=== PATIENT | female | born 1935 | race Caucasian/White ===

== ENCOUNTER 2017-05-01 09:40 | Outpatient (CLI) | payer MEDICARE, SELFPAY | END 2017-05-01 10:35 | disposition home or self-care (01) | PROVIDERS: Visit Provider Nurse Practitioner Family | DX: M81.0 Age-related osteoporosis without current pathological fracture (principal) | CPT/HCPCS: 96365; J3489 ==

== ENCOUNTER → 2017-05-15 10:13 | Outpatient (CLI) | payer MEDICARE, SELFPAY ==
[2017-05-15 10:41] LABS: Basophils % 0.4 % (0.1-2.0); Eosinophils # 0.3 K/mm3 (0.0-0.4); Eosinophils % 3.6 % (0.1-12.0); Hematocrit 37.4 % (37.0-47.0); Hemoglobin 12.2 g/dL (12.2-16.2); Lymphocytes % 13.3 K/mm3 (10-50); Mean Corpuscular HGB Conc 32.7 g/dL (31.8-35.4); Mean Corpuscular Hemoglobin 29.8 pg (27.0-31.2); Mean Corpuscular Volume 90.9 fl (81-99); Mean Platelet Volume 8.1 fl (7.4-10.4); Monocytes # 0.5 K/mm3 (0.1-1.0); Monocytes % 6.5 % (1.7-9.3); Neutrophils # 5.7 K/mm3 (1.8-7.8); Neutrophils % 76.2 % (37.0-80.0); Platelet Count 228 K/mm3 (142-424); Red Blood Count 4.11 M/mm3 (4.20-5.40); Red Cell Distribution Width 14.1 % (11.5-17.5); White Blood Count 7.5 K/mm3 (4.8-10.8)
[2017-05-15 10:47] LABS: INR 0.99 (0.9-1.1); Prothrombin Time 10.7 seconds (9.4-11.8)
[2017-05-15 12:50] LABS: Alanine Aminotransferase 21 U/L (12-78); Albumin Level 3.8 gm/dL (3.4-5.0); Albumin/Globulin Ratio 1.3 (1.1-1.8); Alkaline Phosphatase 114 U/L (46-116); Anion Gap 10.1 mEq/L (5-15); Aspartate Amino Transferase 17 U/L (15-37); Bilirubin,Total 0.3 mg/dL (0.2-1.0); Blood Urea Nitrogen 23 mg/dL (7-18); Carbon Dioxide 26 mmol/L (21.0-32.0); Chloride 106 mmol/L (98-107); Creatinine,Serum 0.81 mg/dL (0.55-1.02); Estimated Glomerular Filt Rate > 60 ml/min (>60); GFR (African American) > 60 ML/MIN (>60); Globulin 2.9 gm/dl (1.3-3.2); Glucose 91 mg/dL (74-106); Potassium 5.1 mmoL/L (3.5-5.1); Sodium 137 mmol/L (136-145); Total Protein,Serum 6.7 gm/dL (6.4-8.2)
== END ==
PROVIDERS: PCP Family Medicine; Visit Provider Nurse Practitioner Acute Care
DX: K74.60 Unspecified cirrhosis of liver (principal); R91.8 Other nonspecific abnormal finding of lung field
CPT/HCPCS: 36415; 80053; 85025; 85610

== ENCOUNTER → 2017-05-16 12:52 | Outpatient (CLI) | payer MEDICARE, SELFPAY ==
--- NOTE | 2017-05-16 | CT_ITS ---
CT chest wo/w con HISTORY: Follow-up pulmonary nodules ORDERING PHYSICIAN: Savita Acevedo PATIENT AGE: 81 years TECHNIQUE: Axial images obtained. Sagittal and coronal reformatted images are also generated and reviewed. CONTRAST: 75ml Isovue 370 I.V. COMPARISON: 10/28/2016 and 06/12/2016 FINDINGS: Artifact is present from left subclavian placed pacer. No mediastinal or hilar mass or adenopathy. No evidence of aortic aneurysm or central pulmonary and was. Coronary artery stent present. Normal heart size without evidence of pericardial effusion. There are multiple subcentimeter noncalcified pulmonary nodules as previously described. These do not appear significantly changed. No new nodules identified. Dependent changes are present in the lung bases. No effusions or infiltrates. Upper abdominal images show small hiatal hernia. There is mild thoracic curvature convex right with no acute bony anomalies. IMPRESSION: Overall stable CT appearance of the chest. No significant change with no acute finding. No change multiple noncalcified pulmonary nodules over a nearly one-year period. Suggest continued 12 month follow-up
[2017-05-16 13:14] LABS: Ammonia 18 umol/L (19-54)
--- NOTE | 2017-05-16 13:53 | HMH.ITSHM ---
alpha lipoic acid trintellix dofilide cholecalciferol co enzyme q-10 diltiazem febuxostat tolterodine fexofenadine furosemide gabapentin methytlcellulose nystatin omega 3 vit c [facility] po polyethylene glycol omeprazone potachloride metoprolol eliquis
== END ==
PROVIDERS: Family Provider Family Medicine; PCP Family Medicine; Visit Provider Nurse Practitioner Acute Care
DX: R91.8 Other nonspecific abnormal finding of lung field (principal)
CPT/HCPCS: 71270; 82140; Q9967

== ENCOUNTER → 2017-06-02 09:22 | Outpatient (POV) | payer MEDICARE, SELFPAY | PROVIDERS: Visit Provider Nurse Practitioner Acute Care | DX: Z00.00 Encounter for general adult medical examination without abnormal findings (principal) ==

== ENCOUNTER → 2017-06-05 09:42 | Outpatient (CLI) | payer MEDICARE, SELFPAY ==
--- NOTE | 2017-06-05 09:45 | US_ITS ---
US abdomen limited HISTORY: Lateral view hepatitis ITS.REASON: CIRRHOSIS ORDERING PHYSICIAN: Savita Acevedo PATIENT AGE: 81 years COMPARISON: Ultrasound of 10/16/[address] scan of 09/02/2016 FINDINGS: Liver: No focal liver lesion. There is homogeneous echogenicity. No biliary dilatation. Pancreas: Unremarkable. Right kidney: No hydronephrosis. Small cyst along the superior pole and 14 mm. Gallbladder: No stones or gallbladder wall thickening. Small polyp noted along the anterior wall at 3 mm. No gallbladder wall thickening pericholecystic fluid or biliary dilatation. IMPRESSION: 1. Possible small gallbladder wall polyp. 2. Small right renal cyst. 3. Otherwise negative right upper quadrant ultrasound
== END ==
PROVIDERS: Family Provider Family Medicine; Visit Provider Nurse Practitioner Acute Care
DX: K74.60 Unspecified cirrhosis of liver (principal)
CPT/HCPCS: 76705

== ENCOUNTER → 2017-06-06 08:47 | Outpatient (POV) | payer MEDICARE, SELFPAY | PROVIDERS: Family Provider Family Medicine; Visit Provider Thoracic Surgery (Cardiothoracic Vascular Surgery) | DX: Z00.00 Encounter for general adult medical examination without abnormal findings (principal) ==

== ENCOUNTER 2017-07-21 06:48 | Day surgery (SDC) | payer MEDICARE, SELFPAY ==
[2017-07-18 13:03] VITALS: BMI 30.8
[2017-07-21] VITALS (7 sets, daily range): BP systolic 89–119; BP diastolic 53–77; PULSE 67–71; RESP 18–20; TEMP 36.4–36.6; O2SAT 20–98
--- NOTE | 2017-07-21 07:58 | HMH.ANESCL ---
[facility] Anesthesia Checklist - Patient Identification Patient Identification: Arm Band, Verbal (Name & ) - Structural Data Admitted From: Home Planned Operative Procedure/s: colonoscopy Consent for Planned Operative Procedure(s) Verified: Yes Verified Documents: Surgical Consent - NPO Status Verified Time NPO: 00:00 - Additional verifications Patient : No Anesthesia Reactions: No Hx Blood Transfusions: No Blood Transfusion Reaction: No Cephalosporin Allergy: No Previous Colonoscopy: No - Cardiovascular Assessment Heart Sounds: S1 & S2 Pulse Strength: Baseline Pulse Rhythm: Regular Peripheral Edema: No - Airway Assessment C-Spine Mobility Assessed: Yes TMJ Mobility Assessed: Yes Dentition: Good Dentition - Neurological Assessment Level of Consciousness: Awake, Alert, Appropriate Hx Seizures: No Numbness or tingling in extremities: No - Anesthesia Plan Anesthesia Risk discussed: Yes Anesthesia Plan: Verified ASA Class: III Anesthesia Type: MAC [facility] Anesthesia HX I have reviewed the patient's past medical history: Yes Medical History: Reports:: Atrial Fibrillation, Internal Pacemaker, Lung Disease (copd) Denies:: Diabetes Mellitus Type 1, Diabetes Mellitus Type 2, Seizures Other Surgeries: Yes: Appendectomy, Hysterectomy-Total, Pacemaker *Family Hx:: Unable to obtain
--- NOTE | 2017-07-21 08:10 | HMH.PROC ---
[facility] Procedure Note Procedure Note:: Colonoscopy Procedure Report: Colonoscopy with cold snare polypectomy Endoscopist: Ruben Mims II, MD Referring physician: Selvin Matos MD Date of Procedure: July 21, 2017 Equipment: Olympus 180 variable stiffness pediatric colonoscope Sedation: MAC sedation Indication: Mrs. Schulz is an 81-year-old female who is here for follow-up screening colonoscopy. She continues to have symptoms of lower abdominal discomfort, bloating, constipation and some hemorrhoidal bleeding over the last week. She has been on the fiber bowel regimen (MiraLAX plus Citrucel) routinely. The patient did have a CAT scan of the chest on May 16, 2017 showing no changes. The patient does have cirrhosis with small esophageal varices. The etiology of her cirrhosis is Florentino. The patient did have a colonoscopy in July 2012. At that time she had 2 polyps (tubular adenomas ?2) removed. Her sister had colon cancer at the age of 67. The patient did have a colonoscopy in January 2010 at which time 3 polyps (tubular adenomas ?2/hyperplastic polyp ?1) were removed. Procedure: Prior to the procedure, a history and physical exam was performed, and patient's medications and allergies were reviewed. The risks, benefits and alternatives of the sedation and procedure were discussed with the patient. All questions were answered and informed consent was obtained. The patient was brought to the procedure room. Patient identification and proposed procedure were verified by the physician and the nurse. The patient was placed in a left lateral decubitus position and the scope was passed under direct vision. Throughout the procedure, the patient's blood pressure, pulse, and oxygen saturations were monitored continuously. The colonoscopy was accomplished without difficulty. The patient tolerated the procedure well. Findings: On digital rectal examination there was normal rectal tone. There were no external hemorrhoids. The colonoscope was introduced through the anal canal to the rectum and advanced to the cecum. The ileocecal valve and appendiceal orifice were identified. The scope was advanced a short distance into the ileum which appeared grossly normal. The scope was then withdrawn into the colon. There were 4 colon polyps identified in the cecum ?1, transverse ?2 and descending ?1. These ranged in size from 5-7 mm and were all removed via cold snare polypectomy. The remaining cecum, ascending, transverse, descending, sigmoid and rectum were grossly normal. There were no other mucosal abnormalities identified. Upon retroflexion within the rectum there were grade 1 internal hemorrhoids. Impression: 1. Colonic polyps ?4 2. 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 We will discuss additional treatment options. I will follow-up the polyp histology. I am not convinced that she will need to continue surveillance colonoscopy.
--- NOTE | 2017-07-21 08:33 | P.PCN_ITS ---
[facility] Procedure Note Procedure Note:: Colonoscopy Procedure Report: Colonoscopy with cold snare polypectomy Endoscopist: Ruben Mims II, MD Referring physician: Selvin Matos MD Date of Procedure: July 21, 2017 Equipment: Olympus 180 variable stiffness pediatric colonoscope Sedation: MAC sedation Indication: Mrs. Schulz is an 81-year-old female who is here for follow-up screening colonoscopy. She continues to have symptoms of lower abdominal discomfort, bloating, constipation and some hemorrhoidal bleeding over the last week. She has been on the fiber bowel regimen (MiraLAX plus Citrucel) routinely. The patient did have a CAT scan of the chest on May 16, 2017 showing no changes. The patient does have cirrhosis with small esophageal varices. The etiology of her cirrhosis is Florentino. The patient did have a colonoscopy in July 2012. At that time she had 2 polyps (tubular adenomas ?2) removed. Her sister had colon cancer at the age of 67. The patient did have a colonoscopy in January 2010 at which time 3 polyps (tubular adenomas ?2/ hyperplastic polyp ?1) were removed. Procedure: Prior to the procedure, a history and physical exam was performed, and patient' s medications and allergies were reviewed. The risks, benefits and alternatives of the sedation and procedure were discussed with the patient. All questions were answered and informed consent was obtained. The patient was brought to the procedure room. Patient identification and proposed procedure were verified by the physician and the nurse. The patient was placed in a left lateral decubitus position and the scope was passed under direct vision. Throughout the procedure, the patient's blood pressure, pulse, and oxygen saturations were monitored continuously. The colonoscopy was accomplished without difficulty. The patient tolerated the procedure well. Findings: On digital rectal examination there was normal rectal tone. There were no external hemorrhoids. The colonoscope was introduced through the anal canal to the rectum and advanced to the cecum. The ileocecal valve and appendiceal orifice were identified. The scope was advanced a short distance into the ileum which appeared grossly normal. The scope was then withdrawn into the colon. There were 4 colon polyps identified in the cecum ?1, transverse ?2 and descending ?1. These ranged in size from 5-7 mm and were all removed via cold snare polypectomy. The remaining cecum, ascending, transverse, descending, sigmoid and rectum were grossly normal. There were no other mucosal abnormalities identified. Upon retroflexion within the rectum there were grade 1 internal hemorrhoids. Impression: 1. Colonic polyps ?4 2. 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 We will discuss additional treatment options. I will follow-up the polyp histology. I am not convinced that she will need to continue surveillance colonoscopy.
--- NOTE | 2017-07-21 13:06 | P.PN_ITS ---
[facility] Anesthesia Checklist - Structural Data Planned Operative Procedure/s: colonoscopy Consent for Planned Operative Procedure(s) Verified: Yes - Airway Assessment C-Spine Mobility Assessed: Yes TMJ Mobility Assessed: Yes Dentition: Good Dentition - Neurological Assessment Level of Consciousness: Awake, Alert [facility] Anesthesia HX I have reviewed the patient's past medical history: Yes Medical History: Reports:: Atrial Fibrillation, Internal Pacemaker, Lung Disease (copd) Denies:: Diabetes Mellitus Type 1, Diabetes Mellitus Type 2, Seizures Other Medical History: Denies: Blood Transfusion Reaction Other Surgeries: Yes: Appendectomy, Hysterectomy-Total, Pacemaker *Family Hx:: Unable to obtain
== END 2017-07-21 09:57 | disposition home or self-care (01) ==
PROVIDERS: Family Provider Family Medicine; Visit Provider Internal Medicine Gastroenterology
PROC: 0DJD8ZZ Inspection of Lower Intestinal Tract, Via Natural or Artificial Opening Endoscopic (ICD-10-PCS; CPT 45378; principal; 2017-07-21 08:00)
DX: Z12.11 Encounter for screening for malignant neoplasm of colon (principal); K63.5 Polyp of colon; K64.0 First degree hemorrhoids; K74.60 Unspecified cirrhosis of liver; Z85.038 Personal history of other malignant neoplasm of large intestine
CPT/HCPCS: 45380; 88305

== ENCOUNTER → 2017-08-15 15:25 | Outpatient (CLI) | payer MEDICARE, SELFPAY ==
[2017-08-15 15:52] LABS: Basophils % 0.4 % (0.1-2.0); Eosinophils # 0.2 K/mm3 (0.0-0.4); Eosinophils % 2.2 % (0.1-12.0); Hematocrit 39.8 % (37.0-47.0); Hemoglobin 13.3 g/dL (12.2-16.2); Lymphocytes # 1.6 K/mm3 (0.7-4.5); Lymphocytes % 16.2 K/mm3 (10-50); Mean Corpuscular HGB Conc 33.3 g/dL (31.8-35.4); Mean Corpuscular Hemoglobin 30.6 pg (27.0-31.2); Mean Platelet Volume 8.8 fl (7.4-10.4); Monocytes # 0.8 K/mm3 (0.1-1.0); Monocytes % 8.4 % (1.7-9.3); Neutrophils # 7.1 K/mm3 (1.8-7.8); Neutrophils % 72.9 % (37.0-80.0); Platelet Count 251 K/mm3 (142-424); Red Blood Count 4.33 M/mm3 (4.20-5.40); Red Cell Distribution Width 13.3 % (11.5-17.5); White Blood Count 9.8 K/mm3 (4.8-10.8)
[2017-08-15 18:09] LABS: Troponin I < 0.02 ng/ml (0.00-0.06)
[2017-08-15 18:14] LABS: Alanine Aminotransferase 20 U/L (12-78); Albumin Level 3.6 gm/dL (3.4-5.0); Alkaline Phosphatase 98 U/L (46-116); Anion Gap 15.4 mEq/L (5-15); Aspartate Amino Transferase 16 U/L (15-37); Bilirubin,Total 0.2 mg/dL (0.2-1.0); Blood Urea Nitrogen 62 mg/dL (7-18); C-Reactive Protein 0.8 mg/L (0.0-0.9); Calcium 9.9 mg/dL (8.5-10.1); Carbon Dioxide 23 mmol/L (21.0-32.0); Chloride 104 mmol/L (98-107); Creatinine,Serum 1.86 mg/dL (0.55-1.02); Estimated Glomerular Filt Rate 26 ml/min (>60); GFR (African American) 32 ML/MIN (>60); Globulin 3.7 gm/dl (1.3-3.2); Glucose 101 mg/dL (74-106); Magnesium 2.1 mg/dL (1.4-2.2); Potassium 4.4 mmoL/L (3.5-5.1); Sodium 138 mmol/L (136-145); Thyroid Stimulating Hormone 3.57 uIU/ml (0.358-3.740); Total Protein,Serum 7.3 gm/dL (6.4-8.2)
== END ==
PROVIDERS: Visit Provider Nurse Practitioner Family
DX: R06.02 Shortness of breath (principal); I48.2 Chronic atrial fibrillation
CPT/HCPCS: 36415; 80053; 83735; 83880; 84443; 84484; 85025; 86140

== ENCOUNTER → 2017-08-27 09:15 | Outpatient (CLI) | payer MEDICARE, SELFPAY ==
[2017-08-27 11:51] LABS: Anion Gap 14.6 mEq/L (5-15); Blood Urea Nitrogen 19 mg/dL (7-18); Carbon Dioxide 25 mmol/L (21.0-32.0); Chloride 99 mmol/L (98-107); Creatinine,Serum 0.97 mg/dL (0.55-1.02); Estimated Glomerular Filt Rate 55 ml/min (>60); GFR (African American) 67 ML/MIN (>60); Glucose 103 mg/dL (74-106); Potassium 4.6 mmoL/L (3.5-5.1); Sodium 134 mmol/L (136-145)
== END ==
PROVIDERS: Visit Provider Nurse Practitioner
DX: N17.9 Acute kidney failure, unspecified (principal)
CPT/HCPCS: 36415; 80048

== ENCOUNTER → 2017-09-25 14:42 | Outpatient (CLI) | payer MEDICARE, SELFPAY ==
[2017-09-25 16:07] LABS: Blood Urea Nitrogen 19 mg/dL (7-18); Creatinine,Serum 0.92 mg/dL (0.55-1.02); Estimated Glomerular Filt Rate 59 ml/min (>60); GFR (African American) 71 ML/MIN (>60)
== END ==
PROVIDERS: Visit Provider Nurse Practitioner Family
DX: N20.0 Calculus of kidney (principal)
CPT/HCPCS: 36415; 82565; 84520

== ENCOUNTER → 2017-09-26 08:42 | Outpatient (CLI) | payer MEDICARE, SELFPAY ==
--- NOTE | 2017-09-26 08:53 | CT_ITS ---
CT abdomen pelvis w con CLINICAL INDICATION: Follow-up renal cyst, kidney stone ITS.REASON: RENAL CYST ORDERING PHYSICIAN: Willow Hidalgo PATIENT AGE: 82 years COMPARISON: 09/02/2016 TECHNIQUE: Axial images obtained with sagittal and coronal reformats. All CT scans at the facility use one or more dose reduction, viz: automated exposure control; ma/kV adjustment per patient size (including targeted exams where dose is matched to indication; i.e. head); or iterative reconstruction technique. PROCEDURE: Oral Contrast: Redicat IV Contrast: 75 mL's of Isovue-370. FINDINGS: The liver, gallbladder, spleen, pancreas, and adrenal glands have an unremarkable appearance. A 1.4 cm isodensity is present along the upper pole the right kidney and a 1 cm isodensity is present in the mid polar region of the right kidney and 9 mm isodense is present in the lower pole the right kidney. These are nonsignificant change consistent with renal cysts. Other smaller subcortical cysts are noted bilaterally unchanged. A 2 mm nonobstructing stone is present in the upper pole on the right. No hydronephrosis. No obstructing ureteral calculi. There are small umbilical hernia containing fat. No pelvic mass or abnormal fluid collection. Prior hysterectomy. There is a small right inguinal hernia containing fat IMPRESSION: 1. Overall stable CT appearance of the abdomen and pelvis. 2. No change bilateral renal cortical cysts and nonobstructing stone in the upper pole the right kidney.
== END ==
PROVIDERS: Family Provider Family Medicine; PCP Nurse Practitioner Family; Visit Provider Nurse Practitioner Family
DX: N28.1 Cyst of kidney, acquired (principal)
CPT/HCPCS: 74177; Q9967

== ENCOUNTER → 2017-12-18 09:30 | Outpatient (CLI) | payer MEDICARE, SELFPAY ==
--- NOTE | 2017-12-18 09:35 | XR_ITS ---
XR chest 2V HISTORY: ITS.REASON: DYSPNEA ON EXERTION, COPD ORDERING PHYSICIAN: Willow Hidalgo PATIENT AGE: 82 years COMPARISON: 03/31/2017 FINDINGS: Unremarkable cardiovascular structures. No lobar consolidation or collapse.. Cardiac pacemaker device is present. Mild right apical pleural thickening. There is minimal fissural thickening on the left. IMPRESSION: Pacemaker present, no acute finding
== END ==
PROVIDERS: PCP Nurse Practitioner Family; Visit Provider Nurse Practitioner Family
DX: R06.89 Other abnormalities of breathing (principal); J44.9 Chronic obstructive pulmonary disease, unspecified
CPT/HCPCS: 71046

== ENCOUNTER → 2017-12-23 14:44 | Outpatient (CLI) | payer MEDICARE, SELFPAY ==
[2017-12-23 15:02] LABS: Basophils # 0.1 K/mm3 (0-0.2); Basophils % 0.4 % (0.1-2.0); Eosinophils # 0.2 K/mm3 (0.0-0.4); Eosinophils % 1.9 % (0.1-12.0); Hematocrit 41.2 % (37.0-47.0); Hemoglobin 13.3 g/dL (12.2-16.2); Lymphocytes % 7.9 K/mm3 (10-50); Mean Corpuscular HGB Conc 32.3 g/dL (31.8-35.4); Mean Corpuscular Hemoglobin 30.3 pg (27.0-31.2); Mean Platelet Volume 8.3 fl (7.4-10.4); Monocytes # 0.9 K/mm3 (0.1-1.0); Neutrophils # 10.2 K/mm3 (1.8-7.8); Neutrophils % 82.7 % (37.0-80.0); Platelet Count 250 K/mm3 (142-424); Red Blood Count 4.38 M/mm3 (4.20-5.40); Red Cell Distribution Width 13.5 % (11.5-17.5); White Blood Count 12.3 K/mm3 (4.8-10.8)
[2017-12-23 15:37] LABS: D-Dimer < 100 ng/mL (0-400)
[2017-12-23 16:30] LABS: Alanine Aminotransferase 29 U/L (12-78); Albumin Level 3.6 gm/dL (3.4-5.0); Albumin/Globulin Ratio 1.1 (1.1-1.8); Alkaline Phosphatase 122 U/L (46-116); Anion Gap 13.5 mEq/L (5-15); Aspartate Amino Transferase 16 U/L (15-37); Bilirubin,Total 0.3 mg/dL (0.2-1.0); Blood Urea Nitrogen 39 mg/dL (7-18); C-Reactive Protein 1.6 mg/L (0.0-0.9); Calcium 10.1 mg/dL (8.5-10.1); Carbon Dioxide 29 mmol/L (21.0-32.0); Chloride 102 mmol/L (98-107); Creatinine,Serum 1.42 mg/dL (0.55-1.02); Estimated Glomerular Filt Rate 36 ml/min (>60); GFR (African American) 43 ML/MIN (>60); Globulin 3.2 gm/dl (1.3-3.2); Glucose 98 mg/dL (74-106); Potassium 5.5 mmoL/L (3.5-5.1); Sodium 139 mmol/L (136-145); Total Protein,Serum 6.8 gm/dL (6.4-8.2)
[2017-12-26 09:09] LABS: Antinuclear Antibodies, IFA Positive (.)
== END ==
PROVIDERS: PCP Nurse Practitioner Family; Visit Provider Nurse Practitioner Family
DX: R06.02 Shortness of breath (principal); I48.91 Unspecified atrial fibrillation; R53.1 Weakness
CPT/HCPCS: 36415; 80053; 83880; 84443; 85025; 85378; 86038; 86140; 93005

== ENCOUNTER → 2018-01-01 14:54 | Outpatient (CLI) | payer MEDICARE, SELFPAY ==
--- NOTE | 2018-01-01 14:59 | CA_ITS ---
PROCEDURE: 2-D M-mode and color Doppler study INDICATIONS FOR THE TEST: Chest pain COPD Heart Murmur Tobacco Smoking Palpitations Fatigue Syncope Edema HypertensionXDiabetes Mellitus Rheumatic Fever SOB PEREIRA Obesity Hyperlipidemia Family History HD Additional History PAF,PPM,SOA,PEREIRA CHF PATIENT INFORMATION HEIGHT: 62 WEIGHT:168 GENDER: Female B/P:118/73 2-D/M-MODE INTERPRETATION: 2-D MEASUREMENTS OBSERVED VALUES IN CMS Right Ventricular Dimension (RVDd) 3.1 Interventricular Septum (Thickness)(IVsd) 1.0 Left Ventricular Internal Dimensions(LVIDd) 4.7 Left Ventricular Posterior Wall (Thickness)(LVPWd) 1.0 Aortic Root 2.6 Aortic Cusp Separation 1.6 Left Atrial Dimensions (LAD) 3.7 2D 1. Left atrium is moderately enlarged, left ventricle is normal size, mild concentric left ventricular hypertrophy, visually estimated ejection fraction approximately 50% with no obvious regional wall motion abnormality. 2. The right atrium and right ventricle are moderately enlarged with normal contractility, there is a pacemaker lead seen in the right atrium and right ventricle. 3. The aortic valve is minimally thickened and fibrosed. 4. The mitral and tricuspid valve leaflets are minimally thickened. 5. The pulmonic valve is poorly visualized. 6. No significant pericardial effusion noted. DOPPLER INTERROGATION: Doppler interrogation of the aortic, mitral and tricuspid valvular presence of moderate to severe mitral and moderate tricuspid regurgitation, calculated right ventricular systolic pressure is 65 mmHg consistent with moderate pulmonary hypertension. Diastolic parameters are inconclusive. CONCLUSION: 1. Moderate biatrial enlargement, normal left ventricular size, visually estimated ejection fraction approximately 50% with no obvious regional wall motion abnormality. 2. Moderately enlarged right ventricle with normal contractility. 3. Moderate to severe mitral and moderate tricuspid regurgitation, calculated right ventricular systolic pressure is 65 mmHg consistent with moderate pulmonary hypertension. 4. No significant pericardial effusion noted.
[2018-01-01 16:06] LABS: Anion Gap 12.5 mEq/L (5-15); Blood Urea Nitrogen 22 mg/dL (7-18); Calcium 9.4 mg/dL (8.5-10.1); Carbon Dioxide 27 mmol/L (21.0-32.0); Chloride 102 mmol/L (98-107); Creatinine,Serum 1.28 mg/dL (0.55-1.02); Estimated Glomerular Filt Rate 40 ml/min (>60); GFR (African American) 48 ML/MIN (>60); Glucose 95 mg/dL (74-106); Potassium 4.5 mmoL/L (3.5-5.1); Sodium 137 mmol/L (136-145)
== END ==
PROVIDERS: Family Provider Family Medicine; PCP Nurse Practitioner Family; Visit Provider Nurse Practitioner
DX: I50.32 Chronic diastolic (congestive) heart failure (principal); I48.0 Paroxysmal atrial fibrillation; R06.02 Shortness of breath; I48.91 Unspecified atrial fibrillation; E87.5 Hyperkalemia
CPT/HCPCS: 36415; 80048; 93306

== ENCOUNTER → 2018-01-15 13:34 | Outpatient (CLI) | payer MEDICARE, SELFPAY ==
--- NOTE | 2018-01-15 13:37 | CT_ITS ---
CT chest wo con HISTORY: Short of breath 6 weeks. Patient A. fib. ITS.REASON: SHORTNESS OF BREATH ORDERING PHYSICIAN: Willow Hidalgo PATIENT AGE: 82 years COMPARISON: CT chest 05/16/2017 and March 05, 2016 CT chest Technique: No IV contrast utilized. Helical Axial images obtained. Sagittal and coronal reformatted images are also generated and reviewed. All CT scans at the facility use one or more dose reduction, viz: automated exposure control, ma/kV adjustment per patient size (including targeted exams where dose is matched to indication, i.e. head), or iterative reconstruction technique. FINDINGS: HEART: . No pericardial effusion. Pacemaker leads yield some streak artifact. Coronary artery calcification possibly with LAD stent. MEDIASTINAL & HILAR STRUCTURES: No mediastinal or hilar mass evident. No dominant adenopathy.. Great vessels normal caliber no change since May LUNGS:. Minimal linear atelectasis and scarring most evident towards bases.. These features maxillary improved since prior studies.. No new focal infiltrate or airspace disease of significance. Again see numerous, Multiple faint low density peripheral nodules throughout both right and left lung.. These fairly stable stable with no definitive change in one compared back compared back to February 2016 CT chest. Certainly No prominent change. However would suggest ongoing follow-up chest CT in 9-12 months months. Denser small fissural nodule bilaterally: with one at inferior aspect of minor fissure (axial slice 45 & sagittal 35) & another seen at the upper aspect left major fissure axial slice 18 . Small 5 mm calcified granuloma periphery right lower lobe axial image 55. Calcified hilar nodes on right these features reflect old granulomatous disease. PLEURAL SPACES: No significant findings. No change No significant effusion. No evidence of pneumothorax. BONY STRUCTURES: No acute bony abnormalities apparent . Hypertrophic changes at the medial 10th rib at its junction with transverse process. Reflecting old injury or hypertrophic degenerative changes here Mild dextroscoliosis T-spine again noted with T-spine stable, unchanged since prior study LYMPH NODES: No significant enlarged lymph nodes evident. IMPRESSION: --------- . 1. No acute pulmonary findings.. No significant new findings. 2 Minimal linear scarring & atelectasis most evident towards bases but overall lungs appear slightly clearer and expanded and clear than on previous CT from May . Minimal chronic changes 2. Again note numerous stable faint less than 5 mm noncalcified nodular densities throughout the periphery of the lungs bilaterally. Overall appearance is similar to February 2016 studies with no significant change. Suggest a follow-up within at 10-12 months for ongoing evaluation 3. Heart appears normal in size with coronary artery calcification and possibly a lad stent. Pacemaker in place overlying left chest. Normal pulmonary vascularity
== END ==
PROVIDERS: Family Provider Family Medicine; PCP Nurse Practitioner Family; Visit Provider Nurse Practitioner Family
DX: R06.02 Shortness of breath (principal)
CPT/HCPCS: 71250

== ENCOUNTER → 2018-01-19 11:06 | Outpatient (POV) | payer MEDICARE, SELFPAY | PROVIDERS: Family Provider Family Medicine; PCP Nurse Practitioner Family; Visit Provider Nurse Practitioner Acute Care | DX: Z00.00 Encounter for general adult medical examination without abnormal findings (principal) ==

== ENCOUNTER → 2018-01-23 13:25 | Outpatient (CLI) | payer MEDICARE, SELFPAY | PROVIDERS: Family Provider Family Medicine; PCP Nurse Practitioner Family; Visit Provider Nurse Practitioner Family | DX: R06.02 Shortness of breath (principal) | CPT/HCPCS: 94060; 94640 ==

== ENCOUNTER → 2018-02-02 13:51 | Outpatient (CLI) | payer MEDICARE, SELFPAY ==
[2018-02-02 14:25] LABS: Basophils # 0.1 K/mm3 (0-0.2); Basophils % 0.5 % (0.1-2.0); Eosinophils # 0.2 K/mm3 (0.0-0.4); Hematocrit 36.9 % (37.0-47.0); Hemoglobin 12.1 g/dL (12.2-16.2); Lymphocytes # 0.9 K/mm3 (0.7-4.5); Lymphocytes % 7.7 K/mm3 (10-50); Mean Corpuscular HGB Conc 32.9 g/dL (31.8-35.4); Mean Corpuscular Hemoglobin 30.6 pg (27.0-31.2); Mean Corpuscular Volume 93.2 fl (81-99); Mean Platelet Volume 7.9 fl (7.4-10.4); Monocytes # 0.7 K/mm3 (0.1-1.0); Monocytes % 5.8 % (1.7-9.3); Neutrophils # 9.8 K/mm3 (1.8-7.8); Platelet Count 235 K/mm3 (142-424); Red Blood Count 3.96 M/mm3 (4.20-5.40); Red Cell Distribution Width 13.3 % (11.5-17.5); White Blood Count 11.6 K/mm3 (4.8-10.8)
[2018-02-02 14:30] LABS: INR 1.01 (0.9-1.1); Prothrombin Time 10.4 seconds (9.4-11.8)
[2018-02-02 14:36] LABS: Ammonia < 10 umol/L (19-54)
[2018-02-02 15:44] LABS: Alanine Aminotransferase 28 U/L (12-78); Albumin Level 3.4 gm/dL (3.4-5.0); Albumin/Globulin Ratio 1.1 (1.1-1.8); Alkaline Phosphatase 126 U/L (46-116); Anion Gap 11.6 mEq/L (5-15); Aspartate Amino Transferase 26 U/L (15-37); Bilirubin,Total 0.6 mg/dL (0.2-1.0); Blood Urea Nitrogen 21 mg/dL (7-18); Calcium 9.3 mg/dL (8.5-10.1); Carbon Dioxide 27 mmol/L (21.0-32.0); Chloride 102 mmol/L (98-107); Creatinine,Serum 0.96 mg/dL (0.55-1.02); Estimated Glomerular Filt Rate 56 ml/min (>60); GFR (African American) 67 ML/MIN (>60); Glucose 100 mg/dL (74-106); Potassium 4.6 mmoL/L (3.5-5.1); Sodium 136 mmol/L (136-145); Total Protein,Serum 6.4 gm/dL (6.4-8.2)
[2018-02-04 16:52] LABS: AFP, Tumor Marker 2.8 ng/mL (0.0-8.3)
== END ==
PROVIDERS: PCP Family Medicine; Visit Provider Nurse Practitioner Acute Care
DX: K74.60 Unspecified cirrhosis of liver (principal); I10 Essential (primary) hypertension; I48.0 Paroxysmal atrial fibrillation
CPT/HCPCS: 36415; 80053; 82105; 82140; 85025; 85610

== ENCOUNTER → 2018-02-16 10:04 | Outpatient (CLI) | payer MEDICARE, SELFPAY ==
--- NOTE | 2018-02-16 10:07 | US_ITS ---
US abdomen limited History:Cirrhosis, lateral view hepatitis Ordering Physician:Savita Acevedo Patient Age: 82 years Comparison:06/05/2017 Findings: Pancreas:Unremarkable. No obvious mass or abnormal fluid collection. No ductal dilatation Liver:No focal liver lesions demonstrated. Homogeneous echogenicity. No intrahepatic biliary ductal dilatation evident. There is appropriate directional blood flow within a nondilated portal vein Right Kidney:Small right renal cysts are once again noted. No hydronephrosis. Gallbladder:No gallstones, gallbladder wall thickening, pericholecystic fluid, or biliary dilatation. There is a small polyp along the inferior wall the gallbladder at 2 mm. Common bile duct is normal at 4 mm. Impression: 1. Unremarkable appearing hepatic ultrasound. 2. Small gallbladder polyp. 3. Small right renal cysts
== END ==
PROVIDERS: Family Provider Family Medicine; PCP Family Medicine; Visit Provider Nurse Practitioner Acute Care
DX: K74.60 Unspecified cirrhosis of liver (principal)
CPT/HCPCS: 76705

== ENCOUNTER → 2018-03-05 08:24 | Outpatient (CLI) | payer MEDICARE, SELFPAY ==
--- NOTE | 2018-03-05 | CA_ITS ---
PROCEDURE: 2-D M-mode and color Doppler study INDICATIONS FOR THE TEST: Chest pain COPD+ Heart Murmur Tobacco Smoking Palpitations Fatigue Syncope Edema Hypertension+Diabetes Mellitus Rheumatic Fever SOB+PEREIRA Obesity Hyperlipidemia Family History HD Additional History PAF, PPM, PEREIRA, CHF, Pacemaker, hx ablation 01/2018 PATIENT INFORMATION HEIGHT: 62 WEIGHT:168 GENDER: Female B/P:137/83 2-D/M-MODE INTERPRETATION: 2-D MEASUREMENTS OBSERVED VALUES IN CMS Right Ventricular Dimension (RVDd) 2.6 Interventricular Septum (Thickness)(IVsd) 1.0 Left Ventricular Internal Dimensions(LVIDd) 4.0 Left Ventricular Posterior Wall (Thickness)(LVPWd) 1.0 Aortic Root 2.8 Aortic Cusp Separation 2.2 Left Atrial Dimensions (LAD) 4.6 2D 1. Left atrium is moderately enlarged, left ventricle is normal size, visually estimated ejection fraction 40%, there is abnormal septal motion. 2. The right atrium and right ventricle are mildly enlarged with normal contractility, there is pacemaker lead seen right atrium and right ventricle. 3. The aortic valve is thickened and calcified, leaflet continue to display mobility. 4. The mitral and tricuspid valve leaflets are minimally thickened. 5. The pulmonic valve is poorly visualized. 6. No significant pericardial effusion noted. DOPPLER INTERROGATION: Doppler interrogation of the aortic, mitral and tricuspid valvular presence of moderate aortic, moderate to severe mitral and moderate tricuspid regurgitation, calculated right ventricular systolic pressure is 51. Mildly consistent with moderate pulmonary hypertension, diastolic parameters are inconclusive. Inferior vena cava is not well visualized. CONCLUSION: 1. Moderately enlarged left atrium, normal left ventricular size, visually estimated ejection fraction 40%, there is abnormal septal motion, diastolic parameters are inconclusive. 2. Mildly enlarged right ventricle with normal contractility. 3. Moderate aortic, moderate to severe mitral and moderate tricuspid regurgitation, calculated right ventricular systolic pressure is 51 mmHg consistent with moderate pulmonary hypertension. 4. No significant pericardial effusion noted.
== END ==
PROVIDERS: PCP Family Medicine; Visit Provider Internal Medicine Cardiovascular Disease
DX: I48.4 Atypical atrial flutter; I50.30 Unspecified diastolic (congestive) heart failure; I49.5 Sick sinus syndrome
CPT/HCPCS: 93306

== ENCOUNTER → 2018-04-15 10:59 | Outpatient (CLI) | payer MEDICARE, SELFPAY ==
[2018-04-15 11:17] LABS: Basophils % 0.4 % (0.1-2.0); Eosinophils # 0.2 K/mm3 (0.0-0.4); Eosinophils % 2.4 % (0.1-12.0); Hematocrit 37.7 % (37.0-47.0); Hemoglobin 11.7 g/dL (12.2-16.2); Lymphocytes % 12.5 % (10-50); Mean Corpuscular HGB Conc 31.2 g/dL (31.8-35.4); Mean Corpuscular Hemoglobin 28.1 pg (27.0-31.2); Mean Platelet Volume 8.5 fl (7.4-10.4); Monocytes # 0.6 K/mm3 (0.1-1.0); Monocytes % 7.9 % (1.7-9.3); Neutrophils # 5.9 K/mm3 (1.8-7.8); Neutrophils % 76.9 % (37.0-80.0); Platelet Count 235 K/mm3 (142-424); Red Blood Count 4.18 M/mm3 (4.20-5.40); Red Cell Distribution Width 14.6 % (11.5-17.5); White Blood Count 7.6 K/mm3 (4.8-10.8)
[2018-04-15 12:42] LABS: Alanine Aminotransferase 26 U/L (12-78); Albumin Level 3.9 gm/dL (3.4-5.0); Albumin/Globulin Ratio 1.3 (1.1-1.8); Alkaline Phosphatase 119 U/L (46-116); Anion Gap 14.6 mEq/L (5-15); Aspartate Amino Transferase 14 U/L (15-37); Bilirubin,Total 0.5 mg/dL (0.2-1.0); Blood Urea Nitrogen 24 mg/dL (7-18); Calcium 9.9 mg/dL (8.5-10.1); Carbon Dioxide 25 mmol/L (21.0-32.0); Chloride 102 mmol/L (98-107); Creatinine,Serum 0.92 mg/dL (0.55-1.02); Estimated Glomerular Filt Rate 59 ml/min (>60); GFR (African American) 71 ML/MIN (>60); Globulin 3.1 gm/dl (1.3-3.2); Glucose 97 mg/dL (74-106); Potassium 4.6 mmoL/L (3.5-5.1); Sodium 137 mmol/L (136-145)
== END ==
PROVIDERS: Visit Provider Nurse Practitioner Acute Care
DX: K74.60 Unspecified cirrhosis of liver (principal)
CPT/HCPCS: 36415; 80053; 85025

== ENCOUNTER → 2018-04-20 08:46 | Outpatient (CLI) | payer MEDICARE, SELFPAY ==
--- NOTE | 2018-04-20 09:42 | XR_ITS ---
XR DEXA axial skeleton HISTORY: ITS.REASON: OSTEOPOROSIS ORDERING PHYSICIAN: Willow Hidalgo PATIENT AGE: 82 years COMPARISON: 04/19/2016 FINDINGS: The BMD measured at the Right femoral neck is 0.662 g/cm squared with a T score of -2.7. This is considered Osteoporotic according to the World Health Organization criteria. Fracture risk is High. Treatment is advised. The L1 L4 density has a T score of -1.0, 1.3% less than when compared to previous exam. The mean hip density is unchanged. IMPRESSION: Osteoporosis with high fracture risk. Suggest treatment and follow-up exam in one year
== END ==
PROVIDERS: PCP Nurse Practitioner Family; Visit Provider Nurse Practitioner Family
DX: M81.0 Age-related osteoporosis without current pathological fracture (principal)
CPT/HCPCS: 77080

== ENCOUNTER 2018-05-01 12:45 | Outpatient (CLI) | payer MEDICARE, SELFPAY ==
[2018-05-01 13:25] VITALS: BP 137/68; PULSE 71; RESP 18; O2SAT 97
[2018-05-01 13:40] VITALS: BP 137/62; PULSE 68; RESP 18
== END 2018-05-01 13:50 | disposition home or self-care (01) ==
LOC: INF 12:53
PROVIDERS: Visit Provider Nurse Practitioner Family
DX: M81.0 Age-related osteoporosis without current pathological fracture (principal)
CPT/HCPCS: 96374; J3489

== ENCOUNTER → 2018-07-09 10:24 | Outpatient (CLI) | payer MEDICARE, SELFPAY ==
[2018-07-09 11:06] LABS: Basophils % 0.2 % (0.1-2.0); Eosinophils # 0.1 K/mm3 (0.0-0.4); Eosinophils % 0.9 % (0.1-12.0); Hematocrit 40.5 % (37.0-47.0); Hemoglobin 12.7 g/dL (12.2-16.2); Lymphocytes # 0.9 K/mm3 (0.7-4.5); Lymphocytes % 5.9 % (10-50); Mean Corpuscular HGB Conc 31.5 g/dL (31.8-35.4); Mean Corpuscular Hemoglobin 30.3 pg (27.0-31.2); Mean Corpuscular Volume 96.3 fl (81-99); Monocytes # 0.9 K/mm3 (0.1-1.0); Monocytes % 5.5 % (1.7-9.3); Neutrophils # 13.8 K/mm3 (1.8-7.8); Neutrophils % 87.6 % (37.0-80.0); Platelet Count 239 K/mm3 (142-424); Red Cell Distribution Width 14.9 % (11.5-17.5); White Blood Count 15.8 K/mm3 (4.8-10.8)
[2018-07-09 11:10] LABS: MANUAL DIFFERENTIAL MANUAL DIFFERENTIAL (MANUAL DIFF)
[2018-07-09 11:31] LABS: Eosinophils % 1 % (0-3); Lymphocytes % 5 % (10-50); Monocytes % 6 % (2-9); Neutrophils % 88 % (42-76); Platelet Estimate Normal; RBC Morphology Normal; Total Cells Counted 100
[2018-07-09 11:52] LABS: Alanine Aminotransferase 95 U/L (12-78); Albumin Level 3.4 gm/dL (3.4-5.0); Albumin/Globulin Ratio 0.9 (1.1-1.8); Alkaline Phosphatase 338 U/L (46-116); Anion Gap 16.8 mEq/L (5-15); Aspartate Amino Transferase 49 U/L (15-37); Bilirubin,Total 0.5 mg/dL (0.2-1.0); Blood Urea Nitrogen 35 mg/dL (7-18); Calcium 9.7 mg/dL (8.5-10.1); Carbon Dioxide 26 mmol/L (21.0-32.0); Chloride 98 mmol/L (98-107); Creatinine,Serum 1.17 mg/dL (0.55-1.02); Estimated Glomerular Filt Rate 44 ml/min (>60); GFR (African American) 54 ML/MIN (>60); Globulin 3.6 gm/dl (1.3-3.2); Glucose 161 mg/dL (74-106); Potassium 3.8 mmoL/L (3.5-5.1); Sodium 137 mmol/L (136-145)
== END ==
PROVIDERS: Visit Provider Nurse Practitioner Acute Care
DX: K75.4 Autoimmune hepatitis (principal)
CPT/HCPCS: 36415; 80053; 85007; 85025

== ENCOUNTER → 2018-07-20 10:53 | Outpatient (POV) | payer MEDICARE, SELFPAY | PROVIDERS: Visit Provider Nurse Practitioner Acute Care | DX: Z00.00 Encounter for general adult medical examination without abnormal findings (principal) ==

== ENCOUNTER → 2018-07-21 14:59 | Outpatient (CLI) | payer MEDICARE, SELFPAY ==
--- NOTE | 2018-07-21 14:59 | US_ITS ---
US Arterial Ankle Brachial Ind History: ITS.REASON: skin changes, previous smoker, hypertension, carotid artery disease ORDERING PHYSICIAN: Anjelica Peres DPM PATIENT AGE: 82 years TECHNIQUE: Segmental pressures obtained of both right and left leg. These are compared to brachial blood pressure to yield index at each level sampled including summary CHACE. The data sheets from the procedure are available in PACS FINDINGS Rest study only performed today No prior studies available for comparison. Blood pressures reported are in millimeters mercury. RIGHT LEG CHACE = 1.0. RIGHT LEG TBI=0.6 Brachial BP: 175 Thigh BP: 199 Calf BP: 226 Ankle PT: 185 Ankle DP : 165 Digit =98 LEFT LEG CHACE = 1.0 LEFT LEG TBI= 0.6 Brachial BPD: 179 Thigh BP: 183 Calf BP: 211 Ankle PT:119 Ankle DP: 172 Digit = 104 Pulses and waveforms: Diminished left posterior hip and dorsalis pedis pulses. Normal waveforms. IMPRESSION: The ABIs as reported above are within normal limits. Waveforms are also unremarkable. Pulses are diminished of the left ankle. The TBI's are slightly low at 0.6 suggesting small vessel disease
== END ==
PROVIDERS: PCP Nurse Practitioner Family; Visit Provider Podiatrist
DX: R09.89 Other specified symptoms and signs involving the circulatory and respiratory systems (principal)
CPT/HCPCS: 93922

== ENCOUNTER 2018-08-11 13:55 | Outpatient (RCR) | payer MEDICARE, SELFPAY | END 2018-08-31 14:18 | disposition home or self-care (01) | LOC: PT 13:55 | PROVIDERS: Visit Provider Family Medicine | DX: Z95.5 Presence of coronary angioplasty implant and graft (principal) ==

== ENCOUNTER → 2018-08-19 10:17 | Outpatient (CLI) | payer MEDICARE, SELFPAY ==
--- NOTE | 2018-08-19 10:19 | CT_ITS ---
CT head/brain wo con HISTORY: ITS.REASON: NEW ONSET HEADACHES ORDERING PHYSICIAN: Willow Hidalgo PATIENT AGE: 82 years COMPARISON: 05/31/2014 TECHNIQUE: Axial images obtained without contrast. Brain and bone windows reviewed. All CT scans at the facility use one or more dose reduction, viz: automated exposure control, ma/kV adjustment per patient size (including targeted exams where dose is matched to indication, i.e. head), or iterative reconstruction technique. FINDINGS: No midline shift, mass effect, intracranial hemorrhage, hydrocephalus, or extra-axial fluid collection is evident. ] Lesion of changes of age are present with atrophy and mild periventricular ischemic gliotic change from microvascular disease. The calvarium has an unremarkable appearance. There is opacification of left mastoid sinus and partial opacification of the right sphenoid sinus laterally which is incompletely imaged. No sinus air-fluid levels.. IMPRESSION: 1. No acute intracranial findings. 2. Left mastoid sinus disease. Partial opacification of the right sphenoid sinus
== END ==
PROVIDERS: PCP Nurse Practitioner Family; Visit Provider Nurse Practitioner Family
DX: R51 Headache (principal)
CPT/HCPCS: 70450

== ENCOUNTER → 2018-08-31 07:38 | Outpatient (CLI) | payer MEDICARE, SELFPAY ==
--- NOTE | 2018-08-31 08:00 | US_ITS ---
US abdomen limited HISTORY:Follow-up cirrhosis. Abdominal symptoms ORDERING PHYSICIAN: Savita Acevedo APRN PATIENT AGE: 82 years Comparison: None CT abdomen and pelvis from 09/26/2017, also a ultrasound abdomen 02/16/2018 Sagittal, transverse and decubitus imaging of the gallbladder was performed. GALLBLADDER - No stones are evident. Trace sludge. There is no gallbladder wall thickening. No popliteal cyst noted by the technologist on today's study. Common duct is normal in diameter. Liver: Appears satisfactory. Upper normal echogenicity but no focal lesions. No biliary ductal dilatation. Pancreas: Unremarkable . Right kidney 8.9 cm in length. No hydronephrosis Mild Diffuse cortical thinning perhaps slight increased echogenicity of cortex suggestive of intrinsic/medical renal disease .. Renal cyst noted.: ... Slightly septated up to 2 cm cyst midportion right kidney ... 1.2 cm exophytic cyst off the upper pole right kidney IMPRESSION:...... 1. Gallbladder.. No stones. Trace sludge 2.. Common duct normal. 3. Liver upper normal echogenicity. No focal lesions. Pancreas unremarkable 4. Right Renal cyst again noted. Borderline/Mild diffuse cortical thinning right kidney. Suggestion of perhaps Slight increased echogenicity of renal cortex which may reflect underlying medical renal disease
[2018-08-31 08:56] LABS: Basophils % 0.1 % (0.1-2.0); Eosinophils # 0.1 K/mm3 (0.0-0.4); Eosinophils % 0.8 % (0.1-12.0); Hematocrit 35.1 % (37.0-47.0); Hemoglobin 11.7 g/dL (12.2-16.2); Lymphocytes % 8.6 % (10-50); Mean Corpuscular HGB Conc 33.4 g/dL (31.8-35.4); Mean Corpuscular Hemoglobin 30.9 pg (27.0-31.2); Mean Corpuscular Volume 92.7 fl (81-99); Monocytes # 0.7 K/mm3 (0.1-1.0); Monocytes % 5.8 % (1.7-9.3); Neutrophils # 10.2 K/mm3 (1.8-7.8); Neutrophils % 84.7 % (37.0-80.0); Platelet Count 226 K/mm3 (142-424); Red Blood Count 3.79 M/mm3 (4.20-5.40); Red Cell Distribution Width 14.9 % (11.5-17.5); White Blood Count 12.1 K/mm3 (4.8-10.8)
[2018-08-31 09:00] LABS: INR 1.06 (0.9-1.1); Prothrombin Time 10.9 seconds (9.4-11.8)
[2018-08-31 10:00] LABS: Ammonia 19 umol/L (19-54)
[2018-08-31 11:52] LABS: Alanine Aminotransferase 49 U/L (12-78); Albumin Level 3.7 gm/dL (3.4-5.0); Albumin/Globulin Ratio 1.3 (1.1-1.8); Alkaline Phosphatase 130 U/L (46-116); Anion Gap 14.4 mEq/L (5-15); Aspartate Amino Transferase 19 U/L (15-37); Bilirubin,Total 0.6 mg/dL (0.2-1.0); Blood Urea Nitrogen 38 mg/dL (7-18); Calcium 9.7 mg/dL (8.5-10.1); Carbon Dioxide 24 mmol/L (21.0-32.0); Chloride 107 mmol/L (98-107); Creatinine,Serum 1.13 mg/dL (0.55-1.02); Estimated Glomerular Filt Rate 46 ml/min (>60); Ferritin 143 ng/mL (8-388); GFR (African American) 56 ML/MIN (>60); Globulin 2.9 gm/dl (1.3-3.2); Glucose 83 mg/dL (74-106); Potassium 4.4 mmoL/L (3.5-5.1); Sodium 141 mmol/L (136-145); Total Protein,Serum 6.6 gm/dL (6.4-8.2)
[2018-09-01 08:18] LABS: Iron 142 ug/dL (27-139); UIBC 147 ug/dL (118-369)
[2018-09-02 08:15] LABS: AFP, Tumor Marker 2.9 ng/mL (0.0-8.3); Iron Saturation 49 % (15-55)
== END ==
PROVIDERS: PCP Nurse Practitioner Family; Visit Provider Nurse Practitioner Acute Care
DX: K75.4 Autoimmune hepatitis (principal); K74.60 Unspecified cirrhosis of liver; K06.8 Other specified disorders of gingiva and edentulous alveolar ridge
CPT/HCPCS: 36415; 76705; 80053; 82105; 82140; 82728; 83540; 83550; 85025; 85610

== ENCOUNTER → 2018-09-04 14:04 | Outpatient (CLI) | payer MEDICARE, SELFPAY ==
[2018-09-04 14:56] LABS: Basophils % 0.1 % (0.1-2.0); Eosinophils # 0.1 K/mm3 (0.0-0.4); Eosinophils % 0.3 % (0.1-12.0); Hematocrit 36.9 % (37.0-47.0); Hemoglobin 12.1 g/dL (12.2-16.2); Lymphocytes % 5.5 % (10-50); Mean Corpuscular HGB Conc 32.8 g/dL (31.8-35.4); Mean Corpuscular Hemoglobin 30.6 pg (27.0-31.2); Mean Corpuscular Volume 93.4 fl (81-99); Mean Platelet Volume 7.7 fl (7.4-10.4); Monocytes # 1.2 K/mm3 (0.1-1.0); Monocytes % 6.5 % (1.7-9.3); Neutrophils # 15.7 K/mm3 (1.8-7.8); Neutrophils % 87.6 % (37.0-80.0); Platelet Count 258 K/mm3 (142-424); Red Blood Count 3.96 M/mm3 (4.20-5.40); Red Cell Distribution Width 14.8 % (11.5-17.5); White Blood Count 17.9 K/mm3 (4.8-10.8)
[2018-09-04 15:26] LABS: MANUAL DIFFERENTIAL MANUAL DIFFERENTIAL (MANUAL DIFF)
[2018-09-04 15:55] LABS: Lymphocytes % 4 % (10-50); Monocytes % 5 % (2-9); Neutrophils % 91 % (42-76); Platelet Estimate Normal; RBC Morphology Normal; Total Cells Counted 100
[2018-09-04 17:14] LABS: Alanine Aminotransferase 49 U/L (12-78); Albumin/Globulin Ratio 1.3 (1.1-1.8); Alkaline Phosphatase 130 U/L (46-116); Anion Gap 16.4 mEq/L (5-15); Aspartate Amino Transferase 21 U/L (15-37); Bilirubin,Total 0.5 mg/dL (0.2-1.0); Blood Urea Nitrogen 50 mg/dL (7-18); Calcium 9.6 mg/dL (8.5-10.1); Carbon Dioxide 25 mmol/L (21.0-32.0); Chloride 102 mmol/L (98-107); Creatinine,Serum 1.29 mg/dL (0.55-1.02); Estimated Glomerular Filt Rate 40 ml/min (>60); GFR (African American) 48 ML/MIN (>60); Glucose 100 mg/dL (74-106); Potassium 4.4 mmoL/L (3.5-5.1); Sodium 139 mmol/L (136-145)
== END ==
PROVIDERS: Visit Provider Nurse Practitioner Family
DX: R53.1 Weakness (principal)
CPT/HCPCS: 36415; 80053; 85007; 85025

== ENCOUNTER → 2018-09-08 09:55 | Outpatient (CLI) | payer MEDICARE, SELFPAY ==
[2018-09-08 10:00] LABS: Microscopic, Urine URINE MICROSCOPIC (MICROSCOPIC)
--- NOTE | 2018-09-08 10:04 | XR_ITS ---
XR chest 2V HISTORY: ITS.REASON: LEUKOCYTOSIS ORDERING PHYSICIAN: Willow Hidalgo APRN PATIENT AGE: 82 years COMPARISON: 02/03/2018 FINDINGS: Cardiac pacemaker device remains in place. There are 3 leads present as before. Normal heart size. Lungs are clear of acute infiltrate. Minimal atelectatic or fibrotic changes present in the left mid and lower lung zone. No acute bony findings. IMPRESSION: Minimal atelectatic or fibrotic change in left mid and lower lung zone otherwise negative
[2018-09-08 11:04] LABS: Appearance,Urine CLEAR (Clear); Bilirubin,Urine Negative (Negative); Blood, Urine Negative (Negative); Color,Urine YELLOW (Yellow); Glucose,Urine (UA) Negative (Negative); Ketones,Urine Negative (Negative); Leukocyte Esterase,Urine Negative (Negative); Nitrate,Urine Negative (Negative); Protein,Urine Negative (Negative); Urobilinogen,Urine 0.2 EU/dl (0.2)
[2018-09-08 11:33] LABS: Bacteria,Urine 1+ /lpf; Hyaline Casts,Urine Occasional #/lpf (0); Mucus,Urine Trace /lpf
== END ==
PROVIDERS: Visit Provider Nurse Practitioner Family
DX: D72.829 Elevated white blood cell count, unspecified (principal)
CPT/HCPCS: 71046; 81001

== ENCOUNTER → 2018-09-10 15:28 | Outpatient (CLI) | payer MEDICARE, SELFPAY ==
[2018-09-10 16:07] LABS: Basophils % 0.2 % (0.1-2.0); Eosinophils # 0.1 K/mm3 (0.0-0.4); Eosinophils % 0.9 % (0.1-12.0); Hematocrit 35.9 % (37.0-47.0); Hemoglobin 11.6 g/dL (12.2-16.2); Lymphocytes % 7.6 % (10-50); Mean Corpuscular HGB Conc 32.3 g/dL (31.8-35.4); Mean Corpuscular Hemoglobin 30.1 pg (27.0-31.2); Mean Corpuscular Volume 93.2 fl (81-99); Mean Platelet Volume 7.8 fl (7.4-10.4); Monocytes # 0.8 K/mm3 (0.1-1.0); Monocytes % 5.9 % (1.7-9.3); Neutrophils % 85.4 % (37.0-80.0); Platelet Count 220 K/mm3 (142-424); Red Blood Count 3.85 M/mm3 (4.20-5.40); Red Cell Distribution Width 14.6 % (11.5-17.5); White Blood Count 12.8 K/mm3 (4.8-10.8)
[2018-09-10 17:16] LABS: MANUAL DIFFERENTIAL MANUAL DIFFERENTIAL (MANUAL DIFF)
[2018-09-10 18:18] LABS: Eosinophils % 1 % (0-3); Lymphocytes % 8 % (10-50); Monocytes % 5 % (2-9); Neutrophils % 86 % (42-76); Platelet Estimate Normal; RBC Morphology Normal; Total Cells Counted 100
[2018-09-10 19:17] LABS: Alanine Aminotransferase 50 U/L (12-78); Albumin Level 3.8 gm/dL (3.4-5.0); Albumin/Globulin Ratio 1.3 (1.1-1.8); Alkaline Phosphatase 109 U/L (46-116); Anion Gap 13.1 mEq/L (5-15); Aspartate Amino Transferase 21 U/L (15-37); Bilirubin,Total 0.6 mg/dL (0.2-1.0); Blood Urea Nitrogen 44 mg/dL (7-18); Calcium 9.5 mg/dL (8.5-10.1); Carbon Dioxide 26 mmol/L (21.0-32.0); Chloride 104 mmol/L (98-107); Creatinine,Serum 1.23 mg/dL (0.55-1.02); Estimated Glomerular Filt Rate 42 ml/min (>60); GFR (African American) 51 ML/MIN (>60); Glucose 101 mg/dL (74-106); Potassium 5.1 mmoL/L (3.5-5.1); Sodium 138 mmol/L (136-145); Total Protein,Serum 6.8 gm/dL (6.4-8.2)
== END ==
PROVIDERS: Visit Provider Nurse Practitioner Family
DX: D72.829 Elevated white blood cell count, unspecified (principal)
CPT/HCPCS: 36415; 80053; 85007; 85025; 87040

== ENCOUNTER → 2018-10-09 15:19 | Outpatient (CLI) | payer MEDICARE, SELFPAY ==
--- NOTE | 2018-10-09 15:31 | XR_ITS ---
XR foot RT min 3V HISTORY: ITS.REASON: RT FOOT PAIN ORDERING PHYSICIAN: Willow Hidalgo APRN PATIENT AGE: 83 years COMPARISON: None FINDINGS: No fracture or dislocation. No lytic or blastic change. There is normal mineralization.. The joint spaces are well-preserved. No significant degenerative/arthritic changes. No erosive changes evident. There is a small calcaneal spur and there are generalized vascular calcifications . Mild degenerative changes are present at the navicular cuneiform joint IMPRESSION: Mild degenerative changes, no acute finding
--- NOTE | 2018-10-09 15:31 | XR_ITS ---
XR chest 2V HISTORY: ITS.REASON: SOB,CONGESTIVE HEART FAILURE ORDERING PHYSICIAN: Willow Hidalgo APRN PATIENT AGE: 83 years COMPARISON: 09/08/2018 FINDINGS: Cardiac pacemaker device remains in place not significant changed. There is normal heart size. There are fibrotic changes in the left lower lobe. Coronary artery calcifications are noted. No evidence of CHF or pneumonia. No acute bony findings. IMPRESSION: No change with no acute finding.
--- NOTE | 2018-10-09 15:31 | XR_ITS ---
XR ankle LT min 3V HISTORY: ITS.REASON: LT ANKLE PAIN ORDERING PHYSICIAN: Willow Hidalgo APRN PATIENT AGE: 83 years Comparison: None FINDINGS: No fracture or dislocation. No lytic or blastic change. There is normal mineralization.. The joint spaces are well-preserved. There is mild soft tissue swelling medially and laterally. Generalized vascular calcification. Prominent bony hypertrophic changes are present at the tarsometatarsal junction dorsally as seen on the lateral view. Prominent calcaneal spur is noted. IMPRESSION: 1. Negative ankle. 2. Degenerative changes of the foot
[2018-10-09 16:12] LABS: Basophils % 0.1 % (0.1-2.0); Eosinophils # 0.1 K/mm3 (0.0-0.4); Eosinophils % 0.7 % (0.1-12.0); Hematocrit 33.6 % (37.0-47.0); Hemoglobin 11.3 g/dL (12.2-16.2); Lymphocytes # 1.1 K/mm3 (0.7-4.5); Lymphocytes % 9.2 % (10-50); Mean Corpuscular HGB Conc 33.8 g/dL (31.8-35.4); Mean Corpuscular Hemoglobin 31.4 pg (27.0-31.2); Mean Platelet Volume 7.8 fl (7.4-10.4); Monocytes # 0.6 K/mm3 (0.1-1.0); Monocytes % 5.3 % (1.7-9.3); Neutrophils # 9.8 K/mm3 (1.8-7.8); Neutrophils % 84.8 % (37.0-80.0); Platelet Count 283 K/mm3 (142-424); Red Blood Count 3.61 M/mm3 (4.20-5.40); Red Cell Distribution Width 14.4 % (11.5-17.5); White Blood Count 11.6 K/mm3 (4.8-10.8)
[2018-10-09 17:22] LABS: Erythrocyte Sedimentation Rate 70 mm/hr (0-30)
[2018-10-09 17:38] LABS: Alanine Aminotransferase 48 U/L (12-78); Albumin Level 3.5 gm/dL (3.4-5.0); Albumin/Globulin Ratio 1.1 (1.1-1.8); Alkaline Phosphatase 112 U/L (46-116); Anion Gap 14.5 mEq/L (5-15); Aspartate Amino Transferase 24 U/L (15-37); Bilirubin,Total 0.6 mg/dL (0.2-1.0); Blood Urea Nitrogen 51 mg/dL (7-18); Calcium 9.6 mg/dL (8.5-10.1); Carbon Dioxide 24 mmol/L (21.0-32.0); Chloride 105 mmol/L (98-107); Creatinine,Serum 1.26 mg/dL (0.55-1.02); Estimated Glomerular Filt Rate 41 ml/min (>60); GFR (African American) 49 ML/MIN (>60); Globulin 3.2 gm/dl (1.3-3.2); Glucose 92 mg/dL (74-106); Potassium 4.5 mmoL/L (3.5-5.1); Sodium 139 mmol/L (136-145); Total Protein,Serum 6.7 gm/dL (6.4-8.2); Uric Acid 4.7 mg/dL (2.6-7.2)
== END ==
PROVIDERS: Visit Provider Nurse Practitioner Family
DX: M25.572 Pain in left ankle and joints of left foot (principal); M79.671 Pain in right foot; R60.9 Edema, unspecified; I50.9 Heart failure, unspecified; R06.02 Shortness of breath
CPT/HCPCS: 36415; 71046; 73610; 73630; 80053; 83880; 84550; 85025; 85651

== ENCOUNTER → 2018-10-13 12:30 | Outpatient (CLI) | payer MEDICARE, SELFPAY ==
--- NOTE | 2018-10-13 12:32 | CT_ITS ---
CT chest wo/w con HISTORY: Follow-up pulmonary nodules ITS.REASON: LUNG NODULES ORDERING PHYSICIAN: Rafi Rodas MD PATIENT AGE: 83 years COMPARISON: 01/15/2018 Technique: Axial images obtained without and with contrast. 75 mL's Optiray 350. Sagittal, and coronal reformatted images are also generated and reviewed. All CT scans at the facility use one or more dose reduction, viz: automated exposure control, ma/kV adjustment per patient size (including targeted exams where dose is matched to indication, i.e. head), or iterative reconstruction technique. FINDINGS: No mediastinal or hilar mass or adenopathy. Artifact is present from cardiac pacemaker device. Coronary artery stent is present on the left. Normal heart size. Small hiatal hernia. Upper abdominal images show gastric distention with fluid-filled stomach. A hyperdensity is present in the duodenum and may be due to ingested medication. There are numerous small noncalcified pulmonary nodules. The largest nodule is along the right minor fissure measuring approximately 7 mm and is unchanged. There are numerous additional smaller nodular opacities in both lungs which are stable. There is some scarring in the lung bases with atelectatic changes are somewhat worse compared to the previous exam.. There is mild mid thoracic curvature convex right. IMPRESSION: 1. Overall stable CT appearance of the chest. Numerous noncalcified pulmonary nodules are present the largest at approximately 7 mm which is stable. 2. Slight increase in atelectatic changes or fibrotic changes in the left lower lobe.
--- NOTE | 2018-10-13 12:33 | CT_ITS ---
CT head/brain wo/w con HISTORY: ITS.REASON: PERSISTANT HEADACHES ORDERING PHYSICIAN: Rafi Rodas MD PATIENT AGE: 83 years COMPARISON: None TECHNIQUE: Axial images obtained without and with contrast enhancement utilizing 75 mL of Optiray 350 performed in conjunction with chest CT. Brain and bone windows reviewed. All CT scans at the facility use one or more dose reduction, viz: automated exposure control, ma/kV adjustment per patient size (including targeted exams where dose is matched to indication, i.e. head), or iterative reconstruction technique. FINDINGS: No midline shift, mass effect, intracranial hemorrhage, hydrocephalus, or extra-axial fluid collection is evident. No enhancing lesions are evident. No intra or extra-axial mass. There are subtle areas of decreased attenuation in the ventricular subcortical white matter consistent with ischemic gliotic change from microvascular disease. The calvarium has an unremarkable appearance. There is opacification of a lateral right renal air cell. There is opacification of the left mastoid sinus and left middle ear. IMPRESSION: 1. No acute intracranial findings. No intracranial enhancing lesions 2. Opacified left mastoid sinus and left middle ear 3. Opacified right lateral sphenoid air cell
== END ==
PROVIDERS: PCP Nurse Practitioner Family; Visit Provider Thoracic Surgery (Cardiothoracic Vascular Surgery)
DX: R51 Headache (principal); R91.1 Solitary pulmonary nodule
CPT/HCPCS: 70470; 71270; Q9967

== ENCOUNTER 2019-01-09 03:30 | Inpatient (IN) ==
[2019-01-09 03:57] LABS: Basophils # 0.1 K/mm3 (0-0.2); Basophils % 0.3 % (0.1-2.0); Eosinophils # 0.1 K/mm3 (0.0-0.4); Eosinophils % 0.6 % (0.1-12.0); Hemoglobin 8.8 g/dL (12.2-16.2); Lymphocytes % 16.3 % (10-50); Mean Corpuscular HGB Conc 31.8 g/dL (31.8-35.4); Mean Corpuscular Volume 101.5 fl (81-99); Mean Platelet Volume 8.1 fl (7.4-10.4); Monocytes # 1.2 K/mm3 (0.1-1.0); Monocytes % 6.3 % (1.7-9.3); Neutrophils % 76.4 % (37.0-80.0); Platelet Count 315 K/mm3 (142-424); Red Blood Count 2.74 M/mm3 (4.20-5.40); Red Cell Distribution Width 14.1 % (11.5-17.5); White Blood Count 18.3 K/mm3 (4.8-10.8)
[2019-01-09 03:58] LABS: Hematocrit 27.8 % (37.0-47.0)
[2019-01-09 04:14] LABS: Activated Partial Thrombo Time 24.5 seconds (23.6-34.0); INR 1.16 (0.9-1.1)
[2019-01-09 04:15] LABS: Hypochromasia 1+; Lymphocytes % 16 % (10-50); Macrocytosis 1+; Monocytes % 2 % (2-9); Neutrophils % 77 % (42-76); Total Cells Counted 100
[2019-01-09 04:19] LABS: Albumin Level 2.8 gm/dL (3.4-5.0); Albumin/Globulin Ratio 1.1 (1.1-1.8); Bilirubin,Total 0.5 mg/dL (0.2-1.0); C-Reactive Protein 0.5 mg/dL (0.0-0.9); Calcium 9.1 mg/dL (8.5-10.1); Globulin 2.6 gm/dl (1.3-3.2); Total Protein,Serum 5.4 gm/dL (6.4-8.2)
[2019-01-09 04:43] LABS: Appearance,Urine CLEAR (Clear); Bilirubin,Urine Negative (Negative); Blood, Urine Negative (Negative); Color,Urine YELLOW (Yellow); Glucose,Urine (UA) Negative (Negative); Ketones,Urine TRACE (Negative); Leukocyte Esterase,Urine Negative (Negative); Microscopic, Urine URINE MICROSCOPIC (MICROSCOPIC); Protein,Urine Negative (Negative); Specific Gravity, Urine 1.025 (1.005-1.030); Urobilinogen,Urine 0.2 EU/dl (0.2)
[2019-01-09 04:46] LABS: Mucus,Urine Trace /lpf
--- NOTE | 2019-01-09 05:46 | Emergency Department Note ---
ED Disposition Clinical Impression: UGIB (upper gastrointestinal bleed), Renal insufficiency, S/P placement of cardiac pacemaker Anemia Qualifiers: Anemia type: unspecified type Qualified Code(s): D64.9 - Anemia, unspecified Disposition: Admitted as Observation Condition on Discharge: Serious - Critical Care Critical Care Time: No Attestation: On 01/09/19, the high probability of a clinically significant, sudden or life threatening deterioration of the following system(s) required my full and direct attention, intervention and personal management. The time I documented below is in addition to time spent performing reported procedures but includes the following listed in this critical care notation. Medical Decision Making - Medical Records Medical records reviewed: Yes: I reviewed the patient's medical records. - Andrew Inquiry Pt receiving controlled substance: No Vital Signs: 01/09/19 03:32 01/09/19 04:20 01/09/19 04:38 Temperature 98.1 F Temperature Source Rectal Pulse Rate [Right] 79 75 73 Respiratory Rate 18 18 18 Blood Pressure [Right Arm] 125/59 L 108/55 L 123/60 Blood Pressure Mean [Right Arm] 81 72 81 02 Sat by Pulse Oximetry 100 95 95 01/09/19 05:03 01/09/19 05:21 Temperature Temperature Source Pulse Rate [Right] 70 70 Respiratory Rate 18 18 Blood Pressure [Right Arm] 100/50 L 110/57 L Blood Pressure Mean [Right Arm] 66 74 02 Sat by Pulse Oximetry 100 98 - Lab Data Lab results reviewed: Yes: I reviewed the patient's lab results. Lab Results 01/09/19 03:33: WBC 18.3 H, RBC 2.74 L, Hgb 8.8 L, Hct 27.8 L, MCV 101.5 H, MCH 32.3 H, MCHC 31.8, RDW 14.1, Plt Count 315, MPV 8.1, Neut % (Auto) 76.4, Lymph % (Auto) 16.3, Harvey % (Auto) 6.3, Eos % (Auto) 0.6, Baso % (Auto) 0.3, Neut # (Auto) 14.0 H, Lymph # (Auto) 3.0, Harvey # (Auto) 1.2 H, Eos # (Auto) 0.1, Baso # (Auto) 0.1, Total Counted 100, Neutrophils % (Manual) 77 H, Band Neutrophils % 5.0, Lymphocytes % (Manual) 16, Monocytes % (Manual) 2, Platelet Estimate Normal, Hypochromasia 1+, Macrocytosis 1+, ESR Cancelled 01/09/19 03:33: PT 12.0 H, INR 1.16 H, APTT 24.5 01/09/19 03:33: Sodium 140, Potassium 5.0, Chloride 106, Carbon Dioxide 22, Anion Gap 17.0 H, BUN 73 H, Creatinine 1.63 H, Estimated Creat Clear 38, Estimated GFR 30 L, Est GFR ( Amer) 37 L, Glucose 212 H, Calcium 9.1, Total Bilirubin 0.5, AST 19, ALT 34, Alkaline Phosphatase 81, Troponin I 0.05, C-Reactive Protein 0.5, Total Protein 5.4 L, Albumin 2.8 L, Globulin 2.6, Albumin/Globulin Ratio 1.1, Amylase 73, Lipase 153 01/09/19 03:33: Lactate 4.7 H 01/09/19 03:33: Ammonia 40 01/09/19 03:36: Gastric Occult Blood Positive 01/09/19 04:35: Urine Color Yellow, Urine Appearance Clear, Urine pH 5.0, Ur Specific [place] 1.025, Urine Protein Negative, Urine Glucose (UA) Negative, Urine Ketones Trace, Urine Blood Negative, Urine Nitrate Negative, Urine Bilirubin Negative, Urine Urobilinogen 0.2, Ur Leukocyte Esterase Negative, Ur Squamous Epith Cells 3-5, Urine Mucus Trace 01/09/19 05:30: Crossmatch (AHG) See Detail Result diagrams: 01/09/19 03:33 01/09/19 03:33 Orders (Tests/Meds): ED MEDICATIONS Generic Name Dose Route Start Last Admin Trade Name Freq PRN Reason Stop Dose Admin Sodium Chloride 1,000 mls @ 999 mls/hr 01/09/19 03:45 01/09/19 04:36 Sod Chlor 0.9% 1000ml Bag IV 01/09/19 04:45 999 mls/hr .Q1H1M TIFFANI Administration Sodium Chloride 1,000 mls @ 999 mls/hr 01/09/19 03:35 01/09/19 03:30 Sod Chlor 0.9% 1000ml Bag IV 01/09/19 04:35 999 mls/hr .Q1H1M TIFFANI Administration Sodium Chloride 250 mls @ 25 mls/hr 01/09/19 05:15 Sod Chlor 0.9% 250ml Bag IV 01/10/19 05:14 .Q10H TIFFANI Sodium Chloride 8 ml 01/09/19 05:30 Sodium Chloride 0.9% 10ml Vial IV 02/08/19 05:29 NEEDED PRN dilute pepcid Sodium Chloride 10 ml 01/09/19 05:30 Saline Flush 10ml Syringe IV 02/08/19 05:29 NEEDED PRN Maintain IV Site Discontinued Medications Generic Name Dose Route Start Last Admin Trade Name Freq PRN Reason Stop Dose Admin Famotidine 20 mg 01/09/19 05:30 01/09/19 05:34 Pepcid 20mg/2ml Vial IV 01/09/19 05:31 20 mg ONCE ONE Administration Metoclopramide HCl 10 mg 01/09/19 05:30 01/09/19 05:34 Reglan 10mg/2ml Vial IVP 01/09/19 05:31 10 mg ONCE ONE Administration Morphine Sulfate 2 mg 01/09/19 05:33 01/09/19 05:34 Morphine 2mg/Ml Syringe IV 01/09/19 05:34 2 mg ONCE ONE Administration ORDERS Category Date Time Status Blood transfusion [Red Blood Cells] Stat BBK 01/09/19 05:30 Received Type and Screen Stat BBK 01/09/19 05:[address] abdomen pelvis wo con Stat Cat Scan 01/09/19 03:33 Taken XR chest portable Stat Exams 01/09/19 03:33 Taken Diarrhea 23 Panel, PCR Stat Lab 01/09/19 03:37 Ordered Blood Culture Stat Micro 01/09/19 03:33 Received - CT Data CT Scan: Abdomen, Pelvis Time Received: 05:[address] Reviewed: Yes: I have viewed the radiologist's interpretation Preliminary Findings: Normal/NAD - ECG Data Tracing #1 Ischemic changes: other (paced) - Physician Consults Physician Consulted: sheila Reason -: Admission Nausea/Vomiting/Diarrhea HPI - General Chief complaint: Nausea/Vomiting/Diarrhea Stated complaint: hematemesis, abd pain Time Seen by Provider: 01/09/19 04:00 Mode of Arrival: EMS Source of Information: Patient, Relative, EMS, Medical Record Limitations: No Limitations Description of Symptoms (Recalled from ER Triage Doc. by RN): Pt states yesterday she had a edoscopy perfromed by dr forbes. Pt brought in by ems with c/o weakness and abd pain, upon transport pt began to vomit bright red emesis. Pt states her abdomen is cramping up into her epigastric area and around to her right shoulder blade. Pt also c/o diarrhea. - History of Present Illness HPI Narrative: pt with hx of recent egd yesterday - pt has known a fib and on eluquis - pt had nausea and upper abd pain and dev upper gi bleed this am - pt with no known varices - MD complaint: nausea, vomiting, abdominal pain Onset (ago): hour(s) Associated Abdominal Pain: Yes Location of pain: epigastric Radiation: other (back ) Severity: moderate Quality: cramping Context: recent surgery/procedure Associated symptoms: denies other symptoms - Related Data Home Medications Medication Instructions Recorded Confirmed Apixaban [Eliquis] 5 mg PO BID 07/18/17 01/09/19 Calcium Carb/Vitamin D3/Vit K1 1 each PO DAILY 07/18/17 01/09/19 [Citracal Soft Chew] Febuxostat [Uloric 40mg Tab] 40 mg PO DAILY 07/18/17 01/09/19 Gabapentin [Gabapentin 100mg Cap] 100 mg PO BID 07/18/17 01/09/19 Polyethylene Glycol 3350 [Miralax 17 gm PO DAILY PRN 07/18/17 01/09/19 17gm Packet] Tolterodine Tartrate [Detrol IR 1 mg PO HS 07/18/17 01/09/19 1mg tablet] Ubidecarenone [Co Q-10] 100 mg PO DAILY 07/18/17 01/09/19 Ascorbic Acid [Vitamin C] 2,000 mg PO DAILY 05/01/18 01/09/19 Furosemide [Furosemide 40MG tAB] 40 mg PO DAILY 05/01/18 01/09/19 albuterol sulfate HFA 90 2 puffs INHALATION BID 25 Days g 07/07/18 01/09/19 mcg/actuation aerosol inhaler alpha lipoic acid 200 mg tablet 400 mg PO DAILY tab 07/07/18 01/09/19 atorvastatin 80 mg tablet 80 mg PO QHS 07/07/18 01/09/[address] - ER 3 mg 3 mg PO DAILY 90 Days each 07/07/18 01/09/19 capsule,delayed,extended release cholecalciferol (vitamin D3) 2,000 2,000 unit PO DAILY 07/07/18 01/09/19 unit capsule clonidine HCl 0.2 mg tablet 0.2 mg PO DAILY 30 Days tab 07/07/18 01/09/19 clopidogrel 75 mg tablet 75 mg PO DAILY 90 Days tab 07/07/18 01/09/19 ferrous sulfate 325 mg (65 mg 325 mg PO DAILY 90 Days tab 07/07/18 01/09/19 iron) tablet,delayed release loratadine 10 mg tablet 10 mg PO DAILY 07/07/18 01/09/19 trazodone 50 mg tablet 50 mg PO HS 90 Days tab 07/07/18 01/09/19 zinc gluconate 30 mg tablet 30 mg PO DAILY tab 07/07/18 01/09/19 potassium chloride ER 20 mEq 20 meq PO DAILY 09/22/18 01/09/19 tablet,extended release Fluticasone/Umeclidin/Vilanter 1 each IH DAILY 01/07/19 01/09/19 [Trelegy Ellipta 100-62.5-25] Lisinopril [Prinivil 5mg Tablet] 5 mg PO DAILY 01/07/19 01/09/19 Mckenzie-3 Acid Ethyl Esters [Lovaza] 2 gm PO BID 01/07/19 01/09/19 Pantoprazole Sodium [Pantoprazole 20 mg PO DAILY 01/07/19 01/09/19 20mg Tab] Allergies Allergy/AdvReac Type Severity Reaction Status Date / Time Cephalosporins Allergy Unknown Verified 01/07/19 09:04 codeine Allergy Unknown Verified 01/07/19 09:04 erythromycin base Allergy Unknown Verified 01/07/19 09:04 Penicillins Allergy Unknown Verified 01/07/19 09:04 sulfamethoxazole Allergy Unknown Verified 01/07/19 09:04 [From Bactrim] trimethoprim [From Bactrim] Allergy Unknown Verified 01/07/19 09:04 [facility] History - Hepatitis A Screen Drug use history?: No High risk sexual behaviors?: No History of sexually transmitted infection?: No Currently employed?: No Childcare worker?: No Do you have indoor plumbing?: Yes Do you have electricity?: Yes Attestation statement:: This patient has been screened for Hepatitis A risk factors. I have reviewed the patient's past medical history: Yes Medical History: Reports:: Atrial Fibrillation, Chronic Obstructive Pulmonary Disease (COPD), Cerebrovascular Accident, Hepatitis, Hyperlipidemia, Hypertension, Internal Pacemaker, Lung Disease (medicated) Denies:: Diabetes Mellitus Type 1, Diabetes Mellitus Type 2, Seizures Other Medical History: Denies: Blood Transfusion Reaction Comment: Plantar fasciitis. 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 Denies: black, tarry stools - Genitourinary Female Genitourinary: Denies hematuria - Musculoskeletal Musculoskeletal: Denies joint pain, Denies joint swelling, Denies neck pain - Integumentary/Breasts Skin/Breast: Denies rash - Neurologic Neurologic: Reports as per HPI, Denies seizure-like activity Physical Exam - General General appearance: alert, in no apparent distress - Head Head exam: normocephalic - Eye Eye exam: Present: PERRL, EOMI. Absent: scleral icterus - ENT ENT exam: Present: mucous membranes dry - Neck Neck exam: Present: trachea midline - Respiratory Respiratory exam: Present: normal lung sounds bilaterally. Absent: respiratory distress - Cardiovascular Cardiovascular exam: Present: regular rate, systolic murmur - Abdominal Exam Abdominal exam: Present: soft, tenderness. Absent: guarding, rebound, rigidity Abdominal tenderness: Present: epigastrium, moderate - Extremities Exam Extremities exam: Present: full ROM - Neurological Exam Neurological exam: Present: alert, oriented X3, CN II-XII intact - Psychiatric Psychiatric exam: Present: normal affect - Skin Skin exam: Absent: rash
--- NOTE | 2019-01-09 07:45 | History & Physical Report ---
*Admission Date: 01/09/19 *Chief complaint: Hematemesis *History of present illness: 83-year-old female who underwent EGD yesterday for surveillance of her autoimmune hepatitis presented to the emergency department early this morning with complaints of malaise, weakness, abdominal discomfort and witnessed episode of large volume hematemesis by EMS. Patient was brought to the emergency department where she was found to be anemic with strong suspicion of active bleeding. During her EGD patient had biopsies performed and takes both Eliquis and Plavix. Review of records showed a 2-1/2 g drop in her hemoglobin. Patient appeared pale with blood pressures adequate but on the low end. Patient has been admitted on IV Protonix with discontinuation of anticoagulation and IV fluids. Her biggest complaint at this time is discomfort under her shoulder blades which began simultaneously with onset of weakness [facility] History I have reviewed the patient's past medical history: Yes Medical History: Reports:: Atrial Fibrillation, Congestive Heart Failure, Chronic Obstructive Pulmonary Disease (COPD), Cerebrovascular Accident, Hepatitis, Hyperlipidemia, Hypertension, Internal Pacemaker, Lung Disease (medicated) Denies:: Cancer, Diabetes Mellitus Type 1, Diabetes Mellitus Type 2, MRSA, Seizures *Have you ever received a pneumonia vaccine?: Yes *Have you received a flu vaccine this season?: No Other Medical History: Reports: Blood Transfusion Reaction Comment:: Autoimmune hepatitis Laterality Cases: Bilateral: Breast Biopsy, Tonsillectomy Other Surgeries: Yes: Appendectomy, Cardiac Catheterization, Cardiac Surgery (x2 2004, 2018), Colonoscopy, Coronary Stent (heart), EGD, Hysterectomy-Total, Pacemaker Amputation: No Fractures: No - *Social History Educational Level: Completed College Smoking Status: Former smoker Tobacco Type: cigarettes # Packs/Day (cigarettes): 1 Alcohol Intake: never Alcohol Intake Frequency:: other Substance Use Type: denies use *Occupational Status:: retired Housing: house *Travel in the last 8 weeks: None Family Hx:: Heart Attack, Stroke Review of Systems - Review of Systems Review of systems:: pertinent systems reviewed and negative unless documented below - *Cardiovascular Denies chest pain - *Respiratory Denies change in phlegm color, Denies chest congestion - *Gastrointestinal Reports abdominal pain, Reports change in stools, Reports vomiting blood, Reports vomiting - *Neurologic Denies seizure-like activity Meds Home Medications Medication Instructions Recorded Confirmed Type Apixaban [Eliquis] 5 mg PO BID 07/18/17 01/09/19 History Calcium Carb/Vitamin D3/Vit K1 1 each PO DAILY 07/18/17 01/09/19 History [Citracal Soft Chew] Febuxostat [Uloric 40mg Tab] 40 mg PO DAILY 07/18/17 01/09/19 History Gabapentin [Gabapentin 100mg Cap] 100 mg PO BID 07/18/17 01/09/19 History Polyethylene Glycol 3350 [Miralax 17 gm PO DAILY PRN 07/18/17 01/09/19 History 17gm Packet] Tolterodine Tartrate [Detrol IR 1 mg PO HS 07/18/17 01/09/19 History 1mg tablet] Ubidecarenone [Co Q-10] 100 mg PO DAILY 07/18/17 01/09/19 History Ascorbic Acid [Vitamin C] 2,000 mg PO DAILY 05/01/18 01/09/19 History Furosemide [Furosemide 40MG tAB] 40 mg PO DAILY 05/01/18 01/09/19 History albuterol sulfate HFA 90 2 puffs INHALATION BID 25 Days g 07/07/18 01/09/19 History mcg/actuation aerosol inhaler alpha lipoic acid 200 mg tablet 400 mg PO DAILY tab 07/07/18 01/09/19 History atorvastatin 80 mg tablet 80 mg PO QHS 07/07/18 01/09/[address] - ER 3 mg 3 mg PO DAILY 90 Days each 07/07/18 01/09/19 History capsule,delayed,extended release cholecalciferol (vitamin D3) 2,000 2,000 unit PO DAILY 07/07/18 01/09/19 History unit capsule clonidine HCl 0.2 mg tablet 0.2 mg PO DAILY 30 Days tab 07/07/18 01/09/19 History clopidogrel 75 mg tablet 75 mg PO DAILY 90 Days tab 07/07/18 01/09/19 History ferrous sulfate 325 mg (65 mg 325 mg PO DAILY 90 Days tab 07/07/18 01/09/19 History iron) tablet,delayed release loratadine 10 mg tablet 10 mg PO DAILY 07/07/18 01/09/19 History trazodone 50 mg tablet 50 mg PO HS 90 Days tab 07/07/18 01/09/19 History zinc gluconate 30 mg tablet 30 mg PO DAILY tab 07/07/18 01/09/19 History potassium chloride ER 20 mEq 20 meq PO DAILY 09/22/18 01/09/19 History tablet,extended release Fluticasone/Umeclidin/Vilanter 1 each IH DAILY 01/07/19 01/09/19 History [Trelesylvia Ellipta 100-62.5-25] Lisinopril [Prinivil 5mg Tablet] 5 mg PO DAILY 01/07/19 01/09/19 History Deridder-3 Acid Ethyl Esters [Lovaza] 2 gm PO BID 01/07/19 01/09/19 History Pantoprazole Sodium [Pantoprazole 20 mg PO DAILY 01/07/19 01/09/19 History 20mg Tab] Allergies Allergy/AdvReac Type Severity Reaction Status Date / Time Cephalosporins Allergy Unknown Verified 01/09/19 06:31 codeine Allergy Unknown Verified 01/09/19 06:31 erythromycin base Allergy Unknown Verified 01/09/19 06:31 Penicillins Allergy Unknown Verified 01/09/19 06:31 sulfamethoxazole Allergy Unknown Verified 01/09/19 06:31 [From Bactrim] trimethoprim [From Bactrim] Allergy Unknown Verified 01/09/19 06:31 Exam Vital signs and Labs for Last 24 Hours: Temp Pulse Resp BP Pulse Ox 98.5 F 68 20 140/55 L 96 01/09/19 06:18 01/09/19 06:18 01/09/19 06:18 01/09/19 06:18 01/09/19 06:15 Laboratory Results - last 24 hr 01/09/19 03:33: WBC 18.3 H, RBC 2.74 L, Hgb 8.8 L, Hct 27.8 L, MCV 101.5 H, MCH 32.3 H, MCHC 31.8, RDW 14.1, Plt Count 315, MPV 8.1, Neut % (Auto) 76.4, Lymph % (Auto) 16.3, [place] % (Auto) 6.3, Eos % (Auto) 0.6, Baso % (Auto) 0.3, Neut # (Auto) 14.0 H, Lymph # (Auto) 3.0, [place] # (Auto) 1.2 H, Eos # (Auto) 0.1, Baso # (Auto) 0.1, Total Counted 100, Neutrophils % (Manual) 77 H, Band Neutrophils % 5.0, Lymphocytes % (Manual) 16, Monocytes % (Manual) 2, Platelet Estimate Normal, Hypochromasia 1+, Macrocytosis 1+, ESR Cancelled 01/09/19 03:33: PT 12.0 H, INR 1.16 H, APTT 24.5 01/09/19 03:33: Sodium 140, Potassium 5.0, Chloride 106, Carbon Dioxide 22, Anion Gap 17.0 H, BUN 73 H, Creatinine 1.63 H, Estimated Creat Clear 38, Estimated GFR 30 L, Est GFR ( Amer) 37 L, Glucose 212 H, Calcium 9.1, Total Bilirubin 0.5, AST 19, ALT 34, Alkaline Phosphatase 81, Troponin I 0.05, C-Reactive Protein 0.5, Total Protein 5.4 L, Albumin 2.8 L, Globulin 2.6, Albumin/Globulin Ratio 1.1, Amylase 73, Lipase 153 01/09/19 03:33: Lactate 4.7 H 01/09/19 03:33: Ammonia 40 01/09/19 03:36: Gastric Occult Blood Positive 01/09/19 04:35: Urine Color Yellow, Urine Appearance Clear, Urine pH 5.0, Ur Specific [place] 1.025, Urine Protein Negative, Urine Glucose (UA) Negative, Urine Ketones Trace, Urine Blood Negative, Urine Nitrate Negative, Urine Bilirubin Negative, Urine Urobilinogen 0.2, Ur Leukocyte Esterase Negative, Ur Squamous Epith Cells 3-5, Urine Mucus Trace 01/09/19 05:30: Blood Type O Positive, Antibody Screen Negative, Crossmatch (AHG) See Detail I & O for Last 24 hours: Intake & Output 01/06/19 01/07/19 01/08/19 01/09/19 11:59 11:59 11:59 11:59 Intake Total 1999 Balance 1999 Weight 176 lb 0.217 oz Narrative: She appears pale. No diaphoresis. Pupils are reactive to light. Oropharynx is moist. Neck has no lymphadenopathy or carotid bruits. Lungs are clear to auscultation. Heart rate is irregular. Abdomen is soft with mild left upper quadrant tenderness. Bowel sounds are active. There is no rebound or guarding. Patient has active range of motion in all extremities. Assessment and Plan (1) Autoimmune hepatitis Current visit: Yes Status: Acute Category: Medical Code(s): K75.4 - Autoimmune hepatitis (2) Coronary artery disease Current visit: Yes Status: Acute Category: Medical Code(s): I25.10 - Atherosclerotic heart disease of [place] coronary artery without angina pectoris (3) correction (current) use of anticoagulants Current visit: Yes Status: Acute Category: Medical Code(s): Z79.01 - correction (current) use of anticoagulants (4) UGIB (upper gastrointestinal bleed) Current visit: Yes Status: Acute Category: Medical Code(s): K92.2 - Gastrointestinal hemorrhage, unspecified - Assessment and plan all Dx Assessment and Plan for all problems:: 1. Patient has been admitted for serial monitoring of H&H with anticipation of requiring blood transfusion. Patient will be started on Protonix drip and will be given oral Carafate as well as intravenous Reglan. Plavix and Eliquis will be held. 2. Tylenol and hydrocodone will be used for any complaints of pain 3. Hold antihypertensives 4 n.p.o. for now and may advance to clear liquids as the day progresses. Patient currently lacks appetite
[2019-01-09 08:15] LABS: Basophils # 0.1 K/mm3 (0-0.2); Basophils % 0.3 % (0.1-2.0); Eosinophils % 0.1 % (0.1-12.0); Lymphocytes # 1.5 K/mm3 (0.7-4.5); Lymphocytes % 9.2 % (10-50); Mean Corpuscular HGB Conc 31.7 g/dL (31.8-35.4); Mean Corpuscular Volume 99.8 fl (81-99); Mean Platelet Volume 7.8 fl (7.4-10.4); Monocytes # 1.3 K/mm3 (0.1-1.0); Monocytes % 8.3 % (1.7-9.3); Neutrophils # 13.2 K/mm3 (1.8-7.8); Neutrophils % 82.1 % (37.0-80.0); Platelet Count 259 K/mm3 (142-424); Red Cell Distribution Width 14.3 % (11.5-17.5); White Blood Count 16.1 K/mm3 (4.8-10.8)
[2019-01-09 08:41] LABS: Hemoglobin 6.3 g/dL (12.2-16.2)
--- NOTE | 2019-01-09 10:31 | Pharmacy Consult Notes ---
[facility] Pharmacy VTE Monitoring - Patient Demographics Admission date: 01/09/19 Report Date: 01/09/19 Time: 10:31 Allergies/Adverse Reactions: Patient Allergies Cephalosporins Allergy (Unknown, Verified 01/09/19 06:31) codeine Allergy (Unknown, Verified 01/09/19 06:31) erythromycin base Allergy (Unknown, Verified 01/09/19 06:31) Penicillins Allergy (Unknown, Verified 01/09/19 06:31) sulfamethoxazole [From Bactrim] Allergy (Unknown, Verified 01/09/19 06:31) trimethoprim [From Bactrim] Allergy (Unknown, Verified 01/09/19 06:31) Height: 1.57 m Weight: 79.838 kg Patient Problems: Current Active Problems UGIB (upper gastrointestinal bleed) (Acute) Anemia (Acute) Renal insufficiency (Acute) Autoimmune hepatitis (Acute) Coronary artery disease (Acute) 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) S/P placement of cardiac pacemaker (Acute) - VTE Risk Labs: VTE Related Lab Results Hgb 6.3 g/dL (12.2-16.2) L* D 01/09/19 08:03 Hct 20.0 % (37.0-47.0) L* 01/09/19 08:03 Plt Count 259 K/mm3 (142-424) 01/09/19 08:03 PT 12.0 seconds (9.4-11.8) H 01/09/19 03:33 INR 1.16 (0.9-1.1) H 01/09/19 03:33 APTT 24.5 seconds (23.6-34.0) 01/09/19 03:33 BUN 73 mg/dL (7-18) H 01/09/19 03:33 Creatinine 1.63 mg/dL (0.55-1.02) H 01/09/19 03:33 Estimated Creat Clear 38 mL/min (50-200) 01/09/19 03:33 Was VTE Risk Assessment Performed: Yes VTE Score: 6 VTE Risk Level: Moderate Risk - Prophylaxis VTE Prophylaxis Ordered?: Yes Types of VTE Prophylaxis: TEDS Knee High Location of Applied Device: Bilateral Lower Extremeties
[2019-01-09 18:46] LABS: Hematocrit 28.9 % (37.0-47.0); Hemoglobin 9.6 g/dL (12.2-16.2)
[2019-01-09 20:35] LABS: Hemoglobin 9.6 g/dL (12.2-16.2)
[2019-01-09 20:36] LABS: Hematocrit 29.6 % (37.0-47.0)
[2019-01-10 05:43] LABS: Hemoglobin 8.7 g/dL (12.2-16.2)
[2019-01-10 05:44] LABS: Hematocrit 26.1 % (37.0-47.0)
--- NOTE | 2019-01-10 08:38 | Progress Note ---
Internal Medicine - PN: Subj *Date: 01/10/19 *Time: 08:36 Interval history: Patient reports feeling significantly better this morning with resolution of nausea. She did have additional hematemesis yesterday afternoon. After receiving her 2 units of packed red blood cells patient did develop a fever. She was given additional antibiotic and a transfusion reaction protocol was initiated. Patient does have a history of prior transfusion reaction in May of this past year. Patient has no additional complaints this morning. Bentley catheter was inserted to monitor urine output which has been less than expected Exam Vital signs and Labs for Last 24 Hours: Temp Pulse Resp BP Pulse Ox 98.5 F 71 18 130/61 100 01/10/19 07:56 01/10/19 07:56 01/10/19 07:56 01/10/19 07:56 01/10/19 07:56 Laboratory Results - last 24 hr 01/09/19 05:30: Blood Type O Positive, Antibody Screen Negative, Crossmatch (AHG) See Detail 01/09/19 05:30: Blood Type Confirm O Positive 01/09/19 08:03: WBC 16.1 H, RBC 2.00 L D, Hgb 6.3 L* D, Hct 20.0 L*, MCV 99.8 H, MCH 31.6 H, MCHC 31.7 L, RDW 14.3, Plt Count 259, MPV 7.8, Neut % (Auto) 82.1 H, Lymph % (Auto) 9.2 L, [place] % (Auto) 8.3, Eos % (Auto) 0.1, Baso % (Auto) 0.3, Neut # (Auto) 13.2 H, Lymph # (Auto) 1.5, [place] # (Auto) 1.3 H, Eos # (Auto) 0.0, Baso # (Auto) 0.1 01/09/19 08:03: Lactate 3.0 H 01/09/19 11:04: Lactate 2.8 H 01/09/19 18:20: Hgb 9.6 L D, Hct 28.9 L 01/09/19 19:52: Hgb 9.6 L, Hct 29.6 L 01/09/19 20:00: Lactate 1.8 01/09/19 20:17: Direct Antiglob Test Negative, Hemolysis Bld Bag Check No, Pre- Trans Blood Type O positive, Pre-Trans Vis Hemolysis No, Pre-Trans Antibody Scrn Negative, Post-Trans Blood Type O positive, Post-Tx Visible Hemolys No, Post- Trans Antibody Scrn Negative 01/10/19 05:05: Hgb 8.7 L, Hct 26.1 L I & O for Last 24 hours: Intake & Output 01/07/19 01/08/19 01/09/19 01/10/19 11:59 11:59 11:59 11:59 Intake Total 1999 1637 / 1637 Output Total 900 / 900 Balance 1999 737 / 737 Weight 176 lb 0.217 oz 177 lb 9 oz Narrative: Patient's color has improved. Lungs remain clear. Heart rate is irregular. Abdomen is obese and soft without epigastric tenderness. 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 Will change her Protonix to 40 mg twice daily and discontinue drip 2. Start clear liquids 3. Decrease IV fluids 4. Increase ambulation 5. Restart oral Lasix 6. May DC Bentley catheter later today if patient is ambulating well
[2019-01-10 11:32] LABS: Hematocrit 27.3 % (37.0-47.0); Hemoglobin 8.8 g/dL (12.2-16.2)
[2019-01-10 11:33] LABS: Anion Gap 16.2 mEq/L (5-15); Calcium 8.4 mg/dL (8.5-10.1)
[2019-01-10 19:19] LABS: Hematocrit 22.5 % (37.0-47.0); Hemoglobin 7.3 g/dL (12.2-16.2)
[2019-01-11 07:30] LABS: Basophils % 0.2 % (0.1-2.0); Eosinophils # 0.1 K/mm3 (0.0-0.4); Mean Platelet Volume 7.8 fl (7.4-10.4)
[2019-01-11 07:47] LABS: Eosinophils % 0.7 % (0.1-12.0); Hematocrit 30.1 % (37.0-47.0); Lymphocytes # 1.2 K/mm3 (0.7-4.5); Mean Corpuscular HGB Conc 32.4 g/dL (31.8-35.4); Mean Corpuscular Volume 93.7 fl (81-99); Monocytes # 1.3 K/mm3 (0.1-1.0); Monocytes % 10.3 % (1.7-9.3); Neutrophils # 10.5 K/mm3 (1.8-7.8); Neutrophils % 79.8 % (37.0-80.0); Platelet Count 151 K/mm3 (142-424); Red Blood Count 3.21 M/mm3 (4.20-5.40); White Blood Count 13.1 K/mm3 (4.8-10.8)
[2019-01-11 07:53] LABS: Anion Gap 12.2 mEq/L (5-15); Calcium 8.3 mg/dL (8.5-10.1); Hemoglobin 9.8 g/dL (12.2-16.2)
--- NOTE | 2019-01-11 08:41 | Progress Note ---
Internal Medicine - PN: Subj *Date: 01/11/19 *Time: 08:39 Interval history: Patient has no new complaints this morning. She did have a brief episode of nausea overnight. She did require additional transfusion of 2 units of packed red cells after an acute drop in her hemoglobin. Patient has not had a bowel movement since admission. She asks about possible placement at discharge due to overall weakness. Exam Vital signs and Labs for Last 24 Hours: Temp Pulse Resp BP Pulse Ox 98.5 F 70 20 149/72 H 98 01/11/19 05:30 01/11/19 05:30 01/11/19 05:30 01/11/19 05:30 01/11/19 05:30 Laboratory Results - last 24 hr 01/09/19 05:30: Blood Type O Positive, Antibody Screen Negative, Crossmatch (AHG) See Detail 01/10/19 11:00: Sodium 143, Potassium 4.2, Chloride 111 H, Carbon Dioxide 20 L, Anion Gap 16.2 H, BUN 88 H, Creatinine 1.92 H, Estimated Creat Clear 29, Estimated GFR 25 L, Est GFR ( Amer) 30 L, Glucose 163 H, Calcium 8.4 L 01/10/19 11:00: Hgb 8.8 L, Hct 27.3 L 01/10/19 19:00: Hgb 7.3 L*, Hct 22.5 L* 01/11/19 06:00: WBC 13.1 H, RBC 3.21 L D, Hgb 9.8 L D, Hct 30.1 L, MCV 93.7, MCH 30.4, MCHC 32.4, RDW 16.0, Plt Count 151 D, MPV 7.8, Neut % (Auto) 79.8, Lymph % (Auto) 9.0 L, [place] % (Auto) 10.3 H, Eos % (Auto) 0.7, Baso % (Auto) 0.2, Neut # (Auto) 10.5 H, Lymph # (Auto) 1.2, [place] # (Auto) 1.3 H, Eos # (Auto) 0.1, Baso # (Auto) 0.0 01/11/19 06:00: Sodium 143, Potassium 4.2, Chloride 112 H, Carbon Dioxide 23, Anion Gap 12.2, BUN 62 H D, Creatinine 1.37 H D, Estimated Creat Clear 41, Estimated GFR 37 L, Est GFR ( Amer) 45 L D, Glucose 121 H D, Calcium 8.3 L I & O for Last 24 hours: Intake & Output 01/08/19 01/09/19 01/10/19 01/11/19 11:59 11:59 11:59 11:59 Intake Total 1999 1637 / 1637 1780 / 1780 Output Total 900 / 900 2049 Balance 1999 737 / 737 -270 / -270 Weight 176 lb 0.217 oz 177 lb 9 oz 179 lb 5 oz Microbiology Reports for the Last 24 Hours: Microbiology 01/09/19 03:33 Blood Blood Culture - Preliminary NO GROWTH AFTER 48 HOURS 01/09/19 03:33 Blood Blood Culture - Preliminary Narrative: She is awake and alert sitting up in bed. She is in no distress. Lungs are clear. Heart has a regular rate and rhythm. Abdomen is obese and soft. 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 Repeat CBC this evening 2. DC Bentley catheter 3. PT eval tomorrow and care management consult to investigate availability of bed at [facility] in [place]
--- NOTE | 2019-01-11 17:11 | Electrocardiograph Report ---
APPROVED REPORT Exam: Resting ECG HR:71 bpm ECG Measurements Heart Rate 71 AXES QRSd 150 QRS -70 QT 448 T86 QTc 486 <Conclusion> Electronic ventricular pacemaker Electronically signed by : Edison Alvarez, 01/11/2019 17:10:59
[2019-01-11 18:27] LABS: Basophils % 0.2 % (0.1-2.0); Eosinophils # 0.2 K/mm3 (0.0-0.4); Eosinophils % 1.9 % (0.1-12.0); Hemoglobin 10.3 g/dL (12.2-16.2); Lymphocytes # 1.2 K/mm3 (0.7-4.5); Lymphocytes % 9.9 % (10-50); Mean Corpuscular HGB Conc 33.3 g/dL (31.8-35.4); Mean Corpuscular Volume 94.4 fl (81-99); Mean Platelet Volume 7.9 fl (7.4-10.4); Monocytes % 8.3 % (1.7-9.3); Neutrophils # 9.3 K/mm3 (1.8-7.8); Neutrophils % 79.8 % (37.0-80.0); Platelet Count 138 K/mm3 (142-424); Red Blood Count 3.28 M/mm3 (4.20-5.40); Red Cell Distribution Width 16.3 % (11.5-17.5); White Blood Count 11.6 K/mm3 (4.8-10.8)
[2019-01-12 06:37] LABS: Basophils % 0.2 % (0.1-2.0); Eosinophils # 0.3 K/mm3 (0.0-0.4); Eosinophils % 2.5 % (0.1-12.0); Hematocrit 31.4 % (37.0-47.0); Hemoglobin 10.3 g/dL (12.2-16.2); Lymphocytes # 1.2 K/mm3 (0.7-4.5); Lymphocytes % 12.5 % (10-50); Mean Corpuscular Volume 95.4 fl (81-99); Mean Platelet Volume 8.6 fl (7.4-10.4); Monocytes # 0.9 K/mm3 (0.1-1.0); Monocytes % 9.4 % (1.7-9.3); Neutrophils # 7.4 K/mm3 (1.8-7.8); Neutrophils % 75.4 % (37.0-80.0); Platelet Count 157 K/mm3 (142-424); Red Blood Count 3.29 M/mm3 (4.20-5.40); Red Cell Distribution Width 16.2 % (11.5-17.5); White Blood Count 9.9 K/mm3 (4.8-10.8)
[2019-01-12 06:48] LABS: Anion Gap 13.1 mEq/L (5-15); Calcium 8.4 mg/dL (8.5-10.1)
--- NOTE | 2019-01-12 07:15 | Progress Note ---
Internal Medicine - PN: Subj *Date: 01/12/19 *Time: 07:13 Interval history: Patient's only complaint this morning is the swelling in her hands. Diet was advanced to full liquids late yesterday evening after H&H remained stable. This morning the patient reports feeling well. She denies nausea Exam Vital signs and Labs for Last 24 Hours: Temp Pulse Resp BP Pulse Ox 97.9 F 71 19 147/62 H 98 01/12/19 03:52 01/12/19 03:52 01/12/19 03:52 01/12/19 03:52 01/12/19 03:52 Laboratory Results - last 24 hr 01/11/19 06:00: WBC 13.1 H, RBC 3.21 L D, Hgb 9.8 L D, Hct 30.1 L, MCV 93.7, MCH 30.4, MCHC 32.4, RDW 16.0, Plt Count 151 D, MPV 7.8, Neut % (Auto) 79.8, Lymph % (Auto) 9.0 L, [place] % (Auto) 10.3 H, Eos % (Auto) 0.7, Baso % (Auto) 0.2, Neut # (Auto) 10.5 H, Lymph # (Auto) 1.2, [place] # (Auto) 1.3 H, Eos # (Auto) 0.1, Baso # (Auto) 0.0 01/11/19 06:00: Sodium 143, Potassium 4.2, Chloride 112 H, Carbon Dioxide 23, Anion Gap 12.2, BUN 62 H D, Creatinine 1.37 H D, Estimated Creat Clear 41, Estimated GFR 37 L, Est GFR ( Amer) 45 L D, Glucose 121 H D, Calcium 8.3 L 01/11/19 17:19: WBC 11.6 H, RBC 3.28 L, Hgb 10.3 L, Hct 31.0 L, MCV 94.4, MCH 31.4 H, MCHC 33.3, RDW 16.3, Plt Count 138 L, MPV 7.9, Neut % (Auto) 79.8, Lymph % (Auto) 9.9 L, [place] % (Auto) 8.3, Eos % (Auto) 1.9, Baso % (Auto) 0.2, Neut # (Auto) 9.3 H, Lymph # (Auto) 1.2, [place] # (Auto) 1.0, Eos # (Auto) 0.2, Baso # (Auto) 0.0 01/12/19 05:45: WBC 9.9, RBC 3.29 L, Hgb 10.3 L, Hct 31.4 L, MCV 95.4, MCH 31.5 H, MCHC 33.0, RDW 16.2, Plt Count 157, MPV 8.6, Neut % (Auto) 75.4, Lymph % (Auto) 12.5, [place] % (Auto) 9.4 H, Eos % (Auto) 2.5, Baso % (Auto) 0.2, Neut # (Auto) 7.4, Lymph # (Auto) 1.2, [place] # (Auto) 0.9, Eos # (Auto) 0.3, Baso # (Auto) 0.0 01/12/19 05:45: Sodium 144, Potassium 4.1, Chloride 112 H, Carbon Dioxide 23, Anion Gap 13.1, BUN 38 H D, Creatinine 1.15 H, Estimated Creat Clear 48, Estimated GFR 45 L, Est GFR ( Amer) 55 L D, Glucose 99, Calcium 8.4 L I & O for Last 24 hours: Intake & Output 01/09/19 01/10/19 01/11/19 01/12/19 11:59 11:59 11:59 11:59 Intake Total 2150 / 2150 1637 / 1637 2260 / 2260 390 / 390 Output Total 900 / 900 2275 / 2275 Balance 2150 / 2150 737 / 737 -15 / -15 390 / 390 Weight 176 lb 0.217 oz 177 lb 9 oz 179 lb 5.008 oz 178 lb 4 oz Microbiology Reports for the Last 24 Hours: Microbiology 01/09/19 03:33 Blood Blood Culture - Preliminary 01/09/19 03:33 Blood Blood Culture - Preliminary NO GROWTH AFTER 48 HOURS Narrative: Patient is in no distress. Heart rate is regular. Lungs are clear. Abdomen is soft and nontender. 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 Continue full liquid diet 2. Patient will be given IV Lasix as a diuretic today
--- NOTE | 2019-01-12 07:22 | Discharge Summary ---
General - General Admission date:: 01/09/19 Discharge date: 01/12/19 HPI HPI: 83-year-old female who underwent EGD yesterday for surveillance of her autoimmune hepatitis presented to the emergency department early this morning with complaints of malaise, weakness, abdominal discomfort and witnessed episode of large volume hematemesis by EMS. Patient was brought to the emergency department where she was found to be anemic with strong suspicion of active bleeding. During her EGD patient had biopsies performed and takes both Eliquis and Plavix. Review of records showed a 2-1/2 g drop in her hemoglobin. Patient appeared pale with blood pressures adequate but on the low end. Patient has been admitted on IV Protonix with discontinuation of anticoagulation and IV fluids. Her biggest complaint at this time is discomfort under her shoulder isaac stacey which began simultaneously with onset of weakness Hospital Course Hospital Course: Patient was admitted and H&H performed approximately 4 hours after admission showed acute drop in hemoglobin. Patient was transfused 2 units of packed red blood cells with excellent response and hemoglobin kimmie to above 9. Serial CBCs were ordered and patient's hemoglobin stayed appropriate for nearly 24 hours before another sudden drop. Patient was transfused an additional 2 units of packed red blood cells with excellent response of hemoglobin to greater than 10. Patient's diet was advanced to clear liquids after H&H stabilized the first time. After second transfusion and stabilization of H&H patient's diet was advanced to full liquids. It was felt the patient source of GI bleed was biopsy sites from EGD performed on January 08 when patient had 2 adenomatous polyps removed. Patient was continued on Reglan, Protonix drip for the first 24 hours then transition to twice daily IV Protonix, sucralfate. Once patient's H&H had stabilized PT and OT evaluations were ordered. Patient admittedly felt quite weak and had been in bed for the majority of her admission. Antiplatelet agents of Eliquis and Plavix were held while patient was hospitalized and will continue to be held at discharge. On January 13 patient was advanced to soft diet. She will continue sucralfate, Reglan, twice daily PPI. Discussed with patient plan to hold antiplatelet agents, Eliquis and Plavix, until January 22. This would be a total of 2 weeks. At that point I would s uggest reinitiation of Eliquis only. Patient has been on Plavix since April 2018 when she had a stent placed. Patient has completed at least 6 months of dual antiplatelet therapy. Patient's senior risk analyst is Dr. Lorne Desai Patient did get fluid overloaded from blood transfusions and IV fluids. She responded well to intravenous Lasix 40 mg twice daily. Patient may resume home dosing of Lasix 40 mg daily at discharge. PT and OT evaluated patient and it was felt she would be appropriate for long term facility to rehabilitate. At discharge patient was transferred to [facility]. Rehab potential: Good Prognosis: Good Mental status: Average Objective Vital signs: Temp Pulse Resp BP Pulse Ox 97.9 F 71 19 147/62 H 98 01/12/19 03:52 01/12/19 03:52 01/12/19 03:52 01/12/19 03:52 01/12/19 03:52 Results Labs on day of discharge: Labs from last 24 hours 01/12/19 01/12/19 01/11/19 05:45 05:45 17:19 WBC 9.9 11.6 H RBC 3.29 L 3.28 L Hgb 10.3 L 10.3 L Hct 31.4 L 31.0 L MCV 95.4 94.4 MCH 31.5 H 31.4 H MCHC 33.0 33.3 RDW 16.2 16.3 Plt Count 157 138 L MPV 8.6 7.9 Neut % (Auto) 75.4 79.8 Lymph % (Auto) 12.5 9.9 L [place] % (Auto) 9.4 H 8.3 Eos % (Auto) 2.5 1.9 Baso % (Auto) 0.2 0.2 Neut # (Auto) 7.4 9.3 H Lymph # (Auto) 1.2 1.2 [place] # (Auto) 0.9 1.0 Eos # (Auto) 0.3 0.2 Baso # (Auto) 0.0 0.0 Sodium 144 Potassium 4.1 Chloride 112 H Carbon Dioxide 23 Anion Gap 13.1 BUN 38 H D Creatinine 1.15 H Estimated Creat Clear 48 Estimated GFR 45 L Est GFR ( Amer) 55 L D Glucose 99 Calcium 8.4 L 01/11/19 01/11/19 06:00 06:00 WBC 13.1 H RBC 3.21 L D Hgb 9.8 L D Hct 30.1 L MCV 93.7 MCH 30.4 MCHC 32.4 RDW 16.0 Plt Count 151 D MPV 7.8 Neut % (Auto) 79.8 Lymph % (Auto) 9.0 L [place] % (Auto) 10.3 H Eos % (Auto) 0.7 Baso % (Auto) 0.2 Neut # (Auto) 10.5 H Lymph # (Auto) 1.2 [place] # (Auto) 1.3 H Eos # (Auto) 0.1 Baso # (Auto) 0.0 Sodium 143 Potassium 4.2 Chloride 112 H Carbon Dioxide 23 Anion Gap 12.2 BUN 62 H D Creatinine 1.37 H D Estimated Creat Clear 41 Estimated GFR 37 L Est GFR ( Amer) 45 L D Glucose 121 H D Calcium 8.3 L Preliminary micro results at discharge 01/09/19 03:33 Blood Culture - Preliminary Blood 01/09/19 03:33 Blood Culture - Preliminary Blood NO GROWTH AFTER 48 HOURS DS: Diagnosis - Discharge Diagnosis (1) UGIB (upper gastrointestinal bleed) Status: Acute (2) Autoimmune hepatitis Status: Acute (3) Coronary artery disease Status: Acute (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 Status: Acute (5) Stage 3 chronic kidney disease Status: Acute (6) Atrial fibrillation Status: Acute Discharge Plan - Patient Discharge Instructions ACTIVITY: Continue current activity DIET: continue same diet Patient Instructions: Kidney Failure, DI for Iron Deficiency Anemia-Adult, Gastrointestinal Bleeding - Follow up Plan Disposition: [facility] Home Medications: Home Medications Medication Instructions Recorded Confirmed Type Apixaban [Eliquis] 5 mg PO BID 07/18/17 01/09/19 History Calcium Carb/Vitamin D3/Vit K1 1 each PO DAILY 07/18/17 01/09/19 History [Citracal Soft Chew] Febuxostat [Uloric 40mg Tab] 40 mg PO DAILY 07/18/17 01/09/19 History Gabapentin [Gabapentin 100mg Cap] 100 mg PO BID 07/18/17 01/09/19 History Polyethylene Glycol 3350 [Miralax 17 gm PO DAILY PRN 07/18/17 01/09/19 History 17gm Packet] Tolterodine Tartrate [Detrol IR 1 mg PO HS 07/18/17 01/09/19 History 1mg tablet] Ubidecarenone [Co Q-10] 100 mg PO DAILY 07/18/17 01/09/19 History Ascorbic Acid [Vitamin C] 2,000 mg PO DAILY 05/01/18 01/09/19 History Furosemide [Furosemide 40MG tAB] 40 mg PO DAILY 05/01/18 01/09/19 History albuterol sulfate HFA 90 2 puffs INHALATION Q6HP PRN 25 07/07/18 01/10/19 History mcg/actuation aerosol inhaler Days g alpha lipoic acid 200 mg tablet 400 mg PO DAILY tab 07/07/18 01/09/19 History atorvastatin 80 mg tablet 80 mg PO HS 07/07/18 01/09/[address] - ER 3 mg 3 mg PO DAILY 90 Days each 07/07/18 01/09/19 History capsule,delayed,extended release cholecalciferol (vitamin D3) 2,000 2,000 unit PO DAILY 07/07/18 01/09/19 History unit capsule clonidine HCl 0.2 mg tablet 0.2 mg PO BID 30 Days tab 07/07/18 01/09/19 History clopidogrel 75 mg tablet 75 mg PO DAILY 90 Days tab 07/07/18 01/09/19 History loratadine 10 mg tablet 10 mg PO DAILY 07/07/18 01/09/19 History trazodone 50 mg tablet 50 mg PO HS 90 Days tab 07/07/18 01/09/19 History zinc gluconate 30 mg tablet 30 mg PO DAILY tab 07/07/18 01/09/19 History potassium chloride ER 20 mEq 20 meq PO DAILY 09/22/18 01/09/19 History tablet,extended release Fluticasone/Umeclidin/Vilanter 1 each IH DAILY 01/07/19 01/09/19 History [Trelegy Ellipta 100-62.5-25] Lisinopril [Prinivil 5mg Tablet] 5 mg PO DAILY 01/07/19 01/09/19 History [place]-3 Acid Ethyl Esters [Lovaza] 2 gm PO BID 01/07/19 01/09/19 History Pantoprazole Sodium [Pantoprazole 20 mg PO DAILY 01/07/19 01/09/19 History 20mg Tab] Ferrous Sulfate [Ferrous Sulfate 325 mg PO DAILY 01/09/19 01/09/19 History 325mg Tablet] Ursodiol [Actigall 300mg capsule] 300 mg PO BID 01/09/19 01/09/19 History Wheat Dextrin [Benefiber] 2 tsp PO DAILYP PRN 01/11/19 01/11/19 History Metoclopramide HCl [Metoclopramide 10 mg PO ACHS #120 tab 01/13/19 Rx 10mg Tablet] Pantoprazole Sodium [Protonix 40mg 40 mg PO BID 30 Days #60 tab 01/13/19 Rx tablet] Sucralfate [Sucralfate 1gm 1 gm PO ACHS #120 tab 01/13/19 Rx Tab] Prescriptions/Medication Reconciliation: New Metoclopramide HCl [Metoclopramide 10mg Tablet] 10 mg PO ACHS #120 tab Pantoprazole Sodium [Protonix 40mg tablet] 40 mg PO BID 30 Days #60 tab Sucralfate [Sucralfate 1gm Tab] 1 gm PO ACHS #[address] - ER 3 mg capsule,delayed,extended release 3 mg PO DAILY 90 Days each albuterol sulfate HFA 90 mcg/actuation aerosol inhaler 2 puffs INHALATION Q6HP PRN 25 Days g PRN Reason: Shortness Of Breath clonidine HCl 0.2 mg tablet 0.2 mg PO BID 30 Days tab trazodone 50 mg tablet 50 mg PO HS 90 Days tab alpha lipoic acid 200 mg tablet 400 mg PO DAILY tab cholecalciferol (vitamin D3) 2,000 unit capsule 2,000 unit PO DAILY loratadine 10 mg tablet 10 mg PO DAILY zinc gluconate 30 mg tablet 30 mg PO DAILY tab atorvastatin 80 mg tablet 80 mg PO HS potassium chloride ER 20 mEq tablet,extended release 20 meq PO DAILY Gabapentin [Gabapentin 100mg Cap] 100 mg PO BID Calcium Carb/Vitamin D3/Vit K1 [Citracal Soft Chew] 1 each PO DAILY Tolterodine Tartrate [Detrol IR 1mg tablet] 1 mg PO HS Febuxostat [Uloric 40mg Tab] 40 mg PO DAILY Ubidecarenone [Co Q-10] 100 mg PO DAILY Polyethylene Glycol 3350 [Miralax 17gm Packet] 17 gm PO DAILY PRN PRN Reason: bowels Ascorbic Acid [Vitamin C] 2,000 mg PO DAILY Lisinopril [Prinivil 5mg Tablet] 5 mg PO DAILY Fluticasone/Umeclidin/Vilanter [Trelegy Ellipta 100-62.5-25] 1 each IH DAILY [place]-3 Acid Ethyl Esters [Lovaza] 2 gm PO BID Ursodiol [Actigall 300mg capsule] 300 mg PO BID Furosemide [Furosemide 40MG tAB] 40 mg PO DAILY Ferrous Sulfate [Ferrous Sulfate 325mg Tablet] 325 mg PO DAILY Wheat Dextrin [Benefiber] 2 tsp PO DAILYP PRN PRN Reason: Constipation Discontinued clopidogrel 75 mg tablet 75 mg PO DAILY 90 Days tab Apixaban [Eliquis] 5 mg PO BID Pantoprazole Sodium [Pantoprazole 20mg Tab] 20 mg PO DAILY - Problem Reconciliation Problems Reviewed?: Yes
--- NOTE | 2019-01-12 07:40 | Progress Note ---
Internal Medicine - PN: Subj *Date: 01/12/19 *Time: 07:40 Exam Vital signs and Labs for Last 24 Hours: Temp Pulse Resp BP Pulse Ox 97.9 F 71 19 147/62 H 98 01/12/19 03:52 01/12/19 03:52 01/12/19 03:52 01/12/19 03:52 01/12/19 03:52 Laboratory Results - last 24 hr 01/11/19 06:00: WBC 13.1 H, RBC 3.21 L D, Hgb 9.8 L D, Hct 30.1 L, MCV 93.7, MCH 30.4, MCHC 32.4, RDW 16.0, Plt Count 151 D, MPV 7.8, Neut % (Auto) 79.8, Lymph % (Auto) 9.0 L, [place] % (Auto) 10.3 H, Eos % (Auto) 0.7, Baso % (Auto) 0.2, Neut # (Auto) 10.5 H, Lymph # (Auto) 1.2, [place] # (Auto) 1.3 H, Eos # (Auto) 0.1, Baso # (Auto) 0.0 01/11/19 06:00: Sodium 143, Potassium 4.2, Chloride 112 H, Carbon Dioxide 23, Anion Gap 12.2, BUN 62 H D, Creatinine 1.37 H D, Estimated Creat Clear 41, Estimated GFR 37 L, Est GFR ( Amer) 45 L D, Glucose 121 H D, Calcium 8.3 L 01/11/19 17:19: WBC 11.6 H, RBC 3.28 L, Hgb 10.3 L, Hct 31.0 L, MCV 94.4, MCH 31.4 H, MCHC 33.3, RDW 16.3, Plt Count 138 L, MPV 7.9, Neut % (Auto) 79.8, Lymph % (Auto) 9.9 L, [place] % (Auto) 8.3, Eos % (Auto) 1.9, Baso % (Auto) 0.2, Neut # (Auto) 9.3 H, Lymph # (Auto) 1.2, [place] # (Auto) 1.0, Eos # (Auto) 0.2, Baso # (Auto) 0.0 01/12/19 05:45: WBC 9.9, RBC 3.29 L, Hgb 10.3 L, Hct 31.4 L, MCV 95.4, MCH 31.5 H, MCHC 33.0, RDW 16.2, Plt Count 157, MPV 8.6, Neut % (Auto) 75.4, Lymph % (Auto) 12.5, [place] % (Auto) 9.4 H, Eos % (Auto) 2.5, Baso % (Auto) 0.2, Neut # (Auto) 7.4, Lymph # (Auto) 1.2, [place] # (Auto) 0.9, Eos # (Auto) 0.3, Baso # (Auto) 0.0 01/12/19 05:45: Sodium 144, Potassium 4.1, Chloride 112 H, Carbon Dioxide 23, Anion Gap 13.1, BUN 38 H D, Creatinine 1.15 H, Estimated Creat Clear 48, Estimated GFR 45 L, Est GFR ( Amer) 55 L D, Glucose 99, Calcium 8.4 L I & O for Last 24 hours: Intake & Output 01/09/19 01/10/19 01/11/19 01/12/19 23:59 23:59 23:59 23:59 Intake Total 3112 / 3112 1665 / 1665 1660 / 1660 Output Total 500 / 500 2100 / 2100 575 / 575 Balance 2612 / 2612 -435 / -435 1085 / 1085 Weight 79.838 kg 80.541 kg 81.335 kg 80.853 kg Microbiology Reports for the Last 24 Hours: Microbiology 01/09/19 03:33 Blood Blood Culture - Preliminary 01/09/19 03:33 Blood Blood Culture - Preliminary NO GROWTH AFTER 48 HOURS Assessment and Plan (1) UGIB (upper gastrointestinal bleed) Current visit: Yes Status: Acute Category: Medical Code(s): K92.2 - Gastrointestinal hemorrhage, unspecified (2) Autoimmune hepatitis Current visit: Yes Status: Acute Category: Medical Code(s): K75.4 - Autoimmune hepatitis (3) Coronary artery disease Current visit: Yes Status: Acute Category: Medical Code(s): I25.10 - Atherosclerotic heart disease of [place] coronary artery without angina pectoris (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
[2019-01-13 06:23] LABS: Basophils % 0.3 % (0.1-2.0); Eosinophils # 0.3 K/mm3 (0.0-0.4); Eosinophils % 4.1 % (0.1-12.0); Hematocrit 27.8 % (37.0-47.0); Lymphocytes % 13.4 % (10-50); Mean Corpuscular HGB Conc 32.7 g/dL (31.8-35.4); Mean Corpuscular Volume 95.7 fl (81-99); Mean Platelet Volume 8.5 fl (7.4-10.4); Monocytes # 0.6 K/mm3 (0.1-1.0); Monocytes % 8.6 % (1.7-9.3); Neutrophils # 5.5 K/mm3 (1.8-7.8); Neutrophils % 73.5 % (37.0-80.0); Platelet Count 172 K/mm3 (142-424); Red Blood Count 2.91 M/mm3 (4.20-5.40); Red Cell Distribution Width 16.1 % (11.5-17.5); White Blood Count 7.5 K/mm3 (4.8-10.8)
[2019-01-13 06:27] LABS: Anion Gap 13.1 mEq/L (5-15); Calcium 8.3 mg/dL (8.5-10.1)
--- NOTE | 2019-01-13 07:19 | Progress Note ---
Internal Medicine - PN: Subj *Date: 01/13/19 *Time: 07:17 Interval history: Patient reports feeling well. She feels like the edema in her hands is improved as well. She noticed increase in urine output with the IV Lasix. Patient questions when she will get to advance her diet. She also asks about her antiplatelet agents, Eliquis and Plavix. Exam Vital signs and Labs for Last 24 Hours: Temp Pulse Resp BP Pulse Ox 97.9 F 70 17 123/73 96 01/13/19 03:53 01/13/19 03:53 01/13/19 03:53 01/13/19 03:53 01/13/19 03:53 Laboratory Results - last 24 hr 01/09/19 04:35: Urine Color Yellow, Urine Appearance Clear, Urine pH 5.0, Ur Specific [place] 1.025, Urine Protein Negative, Urine Glucose (UA) Negative, Urine Ketones Trace, Urine Blood Negative, Urine Nitrate Negative, Urine Bilirubin Negative, Urine Urobilinogen 0.2, Ur Leukocyte Esterase Negative, Ur Squamous Epith Cells 3-5, Urine Mucus Trace 01/13/19 05:37: WBC 7.5, RBC 2.91 L, Hgb 9.0 L D, Hct 27.8 L, MCV 95.7, MCH 31.3 H, MCHC 32.7, RDW 16.1, Plt Count 172, MPV 8.5, Neut % (Auto) 73.5, Lymph % (Auto) 13.4, [place] % (Auto) 8.6, Eos % (Auto) 4.1, Baso % (Auto) 0.3, Neut # (Auto) 5.5, Lymph # (Auto) 1.0, [place] # (Auto) 0.6, Eos # (Auto) 0.3, Baso # (Auto) 0.0 01/13/19 05:37: Sodium 141, Potassium 4.1, Chloride 109 H, Carbon Dioxide 23, Anion Gap 13.1, BUN 28 H D, Creatinine 1.30 H, Estimated Creat Clear 43, Estimated GFR 39 L, Est GFR ( Amer) 47 L, Glucose 119 H D, Calcium 8.3 L I & O for Last 24 hours: Intake & Output 01/10/19 01/11/19 01/12/19 01/13/19 11:59 11:59 11:59 11:59 Intake Total 1637 / 1637 2260 / 2260 390 / 390 420 / 420 Output Total 900 / 900 2275 / 2275 0 / 0 Balance 737 / 737 -15 / -15 390 / 390 420 / 420 Weight 177 lb 9 oz 179 lb 5.008 oz 178 lb 4 oz 179 lb 7 oz Microbiology Reports for the Last 24 Hours: Microbiology 01/09/19 03:33 Blood Blood Culture - Preliminary Dermabacter hominis Narrative: Patient is awake and alert sitting up in chair eating breakfast. Lungs have some faint posterior basilar crackles. Heart has an irregular rate and rhythm. Abdomen is soft. Edema in the hands has improved compared to yesterday Assessment and Plan (1) UGIB (upper gastrointestinal bleed) Current visit: Yes Status: Acute Category: Medical Code(s): K92.2 - Gastrointestinal hemorrhage, unspecified (2) Autoimmune hepatitis Current visit: Yes Status: Acute Category: Medical Code(s): K75.4 - Autoimmune hepatitis (3) Coronary artery disease Current visit: Yes Status: Acute Category: Medical Code(s): I25.10 - Athe rosclerotic heart disease of [place] coronary artery without angina pectoris (4) long-term (current) use of anticoagulants Current visit: Yes Status: Acute Category: Medical Code(s): Z79.01 - [place] (current) use of anticoagulants (5) Stage 3 chronic kidney disease Current visit: Yes Status: Acute Category: Medical Code(s): N18.3 - Chronic kidney disease, stage 3 (moderate) (6) Atrial fibrillation Current visit: Yes Status: Acute Category: Medical Code(s): I48.91 - Unspecified atrial fibrillation - Assessment and plan all Dx Assessment and Plan for all problems:: 1. Advance to soft diet 2. Discussed with patient that anticoagulants will be held for a total of 2 weeks and then she can restart Eliquis with careful monitoring of her H&H 3. Possible discharge today pending insurance approval of senior living stay at [facility]
== END 2019-01-13 15:16 | DRG 920 ==
LOC: 2ND 03:30 → ER 03:30 → OBSVTOIN 06:19 → 2ND 06:19
PROVIDERS: ADMIT Family Medicine; ATTEND Family Medicine
CPT/HCPCS: 36415; 71010; 71045; 74176; 80048; 80053; 81001; 82140; 82150; 82272; 83605; 83690; 84484; 85007; 85014; 85018; 85025; 85610; 85730; 86078; 86140; 86850; 87040; 87077; 87186; 88305; 93005; 96365; 96366; 96375; 97116; 97161; 97165; 97535; 99285; C1726; G0328; J1956; J2405; P9016

== ENCOUNTER → 2019-02-16 10:48 | Outpatient (POV) | payer MEDICARE, SELFPAY | PROVIDERS: Visit Provider Dermatology | DX: Z00.00 Encounter for general adult medical examination without abnormal findings (principal) ==

== ENCOUNTER → 2019-03-08 10:53 | Outpatient (CLI) | payer MEDICARE, SELFPAY ==
--- NOTE | 2019-03-08 11:17 | XR_ITS ---
PROCEDURE: XR CHEST 2V CLINICAL HISTORY: SOB Shortness of breath COMPARISON: CXR2V XR chest 2V from 12/18/2017 CXR2V XR chest 2V from 02/03/[address] chest wo/w con from 10/13/2018 XR CHEST PORTABLE from 01/09/2019 FINDINGS: Normal heart size. 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 There is some increased density in the right perihilar region suspicious for perihilar infiltrate. Mild atelectatic or fibrotic changes are present in the left mid lower lung zone. No obvious effusion No acute bony abnormalities. IMPRESSION: Right perihilar infiltrate Dictated by: Bryan Le MD 03/08/2019 11:38 Electronically signed by Bryan Le MD in [facility] 03/08/2019 11:38
[2019-03-08 15:08] LABS: Anion Gap 10.4 mEq/L (5-15); Blood Urea Nitrogen 25 mg/dL (7-18); Calcium 9.6 mg/dL (8.5-10.1); Carbon Dioxide 27 mmol/L (21.0-32.0); Chloride 104 mmol/L (98-107); Creatinine,Serum 1.01 mg/dL (0.55-1.02); Estimated Glomerular Filt Rate 52 ml/min (>60); GFR (African American) 63 ML/MIN (>60); Glucose 119 mg/dL (74-106); Potassium 4.4 mmoL/L (3.5-5.1); Sodium 137 mmol/L (136-145)
== END ==
PROVIDERS: Visit Provider Internal Medicine Cardiovascular Disease
DX: R06.02 Shortness of breath (principal); R60.0 Localized edema
CPT/HCPCS: 36415; 71046; 80048

== ENCOUNTER → 2019-03-16 16:14 | Outpatient (CLI) | payer MEDICARE, SELFPAY ==
[2019-03-16 16:46] LABS: Basophils % 0.1 % (0.1-2.0); Eosinophils # 0.1 K/mm3 (0.0-0.4); Eosinophils % 0.7 % (0.1-12.0); Hematocrit 34.8 % (37.0-47.0); Hemoglobin 11.5 g/dL (12.2-16.2); Lymphocytes # 0.8 K/mm3 (0.7-4.5); Lymphocytes % 4.3 % (10-50); Mean Corpuscular Hemoglobin 31.3 pg (27.0-31.2); Mean Corpuscular Volume 94.9 fl (81-99); Monocytes # 0.8 K/mm3 (0.1-1.0); Monocytes % 4.6 % (1.7-9.3); Neutrophils # 15.8 K/mm3 (1.8-7.8); Neutrophils % 90.3 % (37.0-80.0); Platelet Count 243 K/mm3 (142-424); Red Blood Count 3.66 M/mm3 (4.20-5.40); Red Cell Distribution Width 14.8 % (11.5-17.5); White Blood Count 17.5 K/mm3 (4.8-10.8)
[2019-03-16 17:14] LABS: MANUAL DIFFERENTIAL MANUAL DIFFERENTIAL (MANUAL DIFF)
[2019-03-16 18:32] LABS: Eosinophils % 1 % (0-3); Hypochromasia 1+; Lymphocytes % 6 % (10-50); Monocytes % 2 % (2-9); Neutrophils % 91 % (42-76); Platelet Estimate Normal; Total Cells Counted 100
[2019-03-16 18:33] LABS: Alanine Aminotransferase 25 U/L (12-78); Albumin Level 3.5 gm/dL (3.4-5.0); Albumin/Globulin Ratio 1.3 (1.1-1.8); Alkaline Phosphatase 76 U/L (46-116); Anion Gap 13.2 mEq/L (5-15); Aspartate Amino Transferase 13 U/L (15-37); Bilirubin,Total 0.4 mg/dL (0.2-1.0); Blood Urea Nitrogen 45 mg/dL (7-18); Calcium 10.8 mg/dL (8.5-10.1); Carbon Dioxide 27 mmol/L (21.0-32.0); Chloride 96 mmol/L (98-107); Creatinine,Serum 1.62 mg/dL (0.55-1.02); Estimated Glomerular Filt Rate 30 ml/min (>60); GFR (African American) 37 ML/MIN (>60); Globulin 2.6 gm/dl (1.3-3.2); Glucose 111 mg/dL (74-106); Potassium 5.2 mmoL/L (3.5-5.1); Sodium 131 mmol/L (136-145); Total Protein,Serum 6.1 gm/dL (6.4-8.2)
== END ==
PROVIDERS: Visit Provider Nurse Practitioner Family
DX: D50.9 Iron deficiency anemia, unspecified (principal); R53.1 Weakness
CPT/HCPCS: 36415; 80053; 85007; 85025

== ENCOUNTER → 2019-03-18 11:15 | Outpatient (CLI) | payer MEDICARE, SELFPAY ==
[2019-03-18 11:23] LABS: Microscopic, Urine URINE MICROSCOPIC (MICROSCOPIC)
--- NOTE | 2019-03-18 11:23 | XR_ITS ---
PROCEDURE: XR CHEST 2V CLINICAL HISTORY: Leukocytosis,, PNEUMONIA COMPARISON: 03/08/2019 FINDINGS: Bipolar pacemaker is present from left subclavian approach Mild right apical pleural thickening unchanged. No lobar consolidation or collapse. Pericardial fat pad noted. There is some linear density noted in the mid upper chest posteriorly which may be due to some atelectatic change. No acute bony abnormalities. IMPRESSION: Minimal atelectatic change in the upper chest posteriorly otherwise negative Dictated by: Bryan Le MD 03/18/2019 15:11 Electronically signed by Bryan eL MD in [facility] 03/18/2019 15:11
[2019-03-18 11:39] LABS: Appearance,Urine CLEAR (Clear); Bilirubin,Urine Negative (Negative); Blood, Urine Negative (Negative); Color,Urine YELLOW (Yellow); Glucose,Urine (UA) Negative (Negative); Ketones,Urine Negative (Negative); Leukocyte Esterase,Urine Negative (Negative); Nitrate,Urine Negative (Negative); PH,Urine 6.5 (5.0-8.5); Protein,Urine Negative (Negative); Specific Gravity, Urine <= 1.005 (1.005-1.030); Urobilinogen,Urine 0.2 EU/dl (0.2)
[2019-03-18 11:54] LABS: WBC,Urine Occasional #/hpf (0-3)
== END ==
PROVIDERS: Visit Provider Nurse Practitioner Family
DX: D72.829 Elevated white blood cell count, unspecified (principal); J18.9 Pneumonia, unspecified organism
CPT/HCPCS: 71046; 81001

== ENCOUNTER 2019-03-19 09:54 | Outpatient (CLI) | payer MEDICARE, SELFPAY ==
[2019-03-19 10:24] VITALS: BP 136/82; PULSE 73; RESP 18
[2019-03-19 12:10] VITALS: BP 112/68; PULSE 72; RESP 20
[2019-03-19 13:00] VITALS: BP 150/71; PULSE 70; RESP 18
[2019-03-19 15:15] VITALS: BP 155/73; PULSE 70; RESP 18
== END 2019-03-19 15:15 | disposition home or self-care (01) ==
LOC: INF 09:57
PROVIDERS: PCP Nurse Practitioner Family; Visit Provider Nurse Practitioner Family
DX: E86.0 Dehydration (principal)
CPT/HCPCS: 96360; 96361

== ENCOUNTER → 2019-03-22 14:04 | Outpatient (CLI) | payer MEDICARE, SELFPAY ==
[2019-03-22 16:15] LABS: Creatinine,Urine Random 20 mg/dL (20-320); Total Protein,Urine Random 29.7 mg/dL (0.0-11.9)
[2019-03-24 12:20] LABS: Vitamin D 25 Hydroxy 44.5 ng/mL (30.0-100.0)
[2019-03-25 08:12] LABS: Parathyroid Hormone Intact 130 pg/mL (15-65)
== END ==
PROVIDERS: Visit Provider Internal Medicine Nephrology
DX: N18.3 Chronic kidney disease, stage 3 (moderate) (principal)
CPT/HCPCS: 36415; 82570; 82652; 83970; 84155

== ENCOUNTER → 2019-03-29 12:28 | Outpatient (POV) | payer MEDICARE, SELFPAY | PROVIDERS: Visit Provider Internal Medicine Nephrology | DX: Z00.00 Encounter for general adult medical examination without abnormal findings (principal) ==